=== PATIENT | male | born 1970 | race Caucasian/White ===

== ENCOUNTER 2018-01-16 05:09 | Emergency (ER) | payer OTHER ==
[~2018-01-16] VITALS: Ht 193 cm; Wt 105.0 kg
[~2018-01-16 05:09] MED LIST: DULO60CA44 PO; FLUT0.15; OCTR100I IM; OXYC20TA50 PO; OXYCODONE 10 MG PO; TELO250T PO; WLLXL300 PO
[2018-01-16 05:16] VITALS: TEMP 37.5; Ht 193 cm; Wt 105.0 kg
[2018-01-16] MEDS ORDERED: KETOROLAC TROMETHAMINE 30 MG/ML VIAL IV STA (05:42)
--- NOTE | 2018-01-16 06:00 | EMERGENCY ROOM VISIT NOTE ---
History Report prepared by Jim: Lam Evans Under the Supervision of: Dr. Jerrica Aleman D.O. First contact with patient: 05:26 Chief Complaint: FOOT PAIN Stated Complaint: PAINFUL LEFT FOOT, SWOLLEN History of Present Illness The patient is a 48 year old male who presents to the Emergency Room with complaints of worsening left foot pain, swelling, and redness that began 5 days ago. Patient states the pain is worsened with movement of his toes. He describes the pain as "excruciating" and states he gets intermittent "shooting pains" up the back of his left leg. Patient states he has had a "nodule" on the arch of his left foot for about a year which his PCP recommended to just closely monitor. Past medical history includes metastatic carcinoid cancer. Patient states his oncologist told him to get a x-ray and US of his left foot to check for a blood clot. Patient states the results showed no clot and that it is "not in the bone". Patient is present with . states the patient finished chemotherapy 5 days ago. Patient states he is currently on an opioid regimen. He states he takes 20mg Oxycodone continuous release TID and then uses 10mg tablets as needed. He states he has not gotten any relief with the Oxycodone. Patient denies a history of gout. The patient was treated by his PCP with Keflex for what he thought was a cellulitis of the foot. That redness seems to have receded. The PCP used a skin marker to outline it. Source of History: patient Onset: 5 days ago Position: foot (left) Symptom Intensity: excruciating Quality: other (Swelling / Redness) Timing: worsening Modifying Factors (Worsening): movement Modifying Factors (Relieving): other (None) Review of Systems See HPI for pertinent positives & negatives. A total of 10 systems reviewed and were otherwise negative. Past Medical & Surgical Medical Problems: (1) Anxiety (2) Depression (3) Kidney stone (4) Liver metastasis (5) Metastatic carcinoid tumor (6) No chronic past medical history Surgical Problems: (1) H/O inguinal hernia repair (2) Hx of right hemicolectomy (3) S/P right knee arthroscopy Family History Heart disease Social History Smoking Status: Never Smoker Alcohol Use: none Marital Status: Housing Status: lives with family Occupation Status: employed Current/Historical Medications Scheduled Bupropion HCl (Bupropion HCl Xl), 300 MG PO DAILY Duloxetine Hcl (Cymbalta), 60 MG PO DAILY Octreotide Acetate (Sandostatin), 30 MCG INJ [id number] Oxycodone Hcl (Oxycontin), 20 MG PO TID Scheduled PRN Oxycodone Ir (Roxicodone Ir), 10-20 MG PO Q6H PRN for Severe Pain Allergies Coded Allergies: Epinephrine (Verified Allergy, Unknown, D/T CANCER, 07/10/17) Physical Exam Vital Signs Date Time Temp Pulse Resp B/P (MAP) Pulse Ox O2 Delivery O2 Flow Rate FiO2 01/16/18 07:11 70 18 127/70 96 Room Air 01/16/18 05:16 37.5 78 18 118/72 97 Room Air Physical Exam Heart: Regular rate and rhythm. There is a normal S1 and S2 with no murmurs, clicks, or gallops appreciated. Lungs: Clear to auscultation bilaterally with no wheezes, rales, or rhonchi. Abdomen: Soft, completely nontender, nondistended, with good bowel sounds. There are no palpable pulsatile masses or hepatosplenomegaly. There is no guarding, rigidity, or rebound noted. Extremities: No evidence of cyanosis, clubbing, or edema. There are easily palpable peripheral pulses. Left foot: Minimal erythema to the medial mid foot with palpable subcutaneous nodule at the arch. Erythema has clearly receding from the skin markings indicating resolving cellulitis. Exquisite pain with palpation over the entire 1st-4th metatarsals. There was significant edema to the foot. There is also pain to the heel of the foot and posterior ankle. Skin: warm and dry with good turgor and no rashes. Medical Decision & Procedures Laboratory Results Test 01/16/18 06:10 Uric Acid 6.0 mg/dl (2.6-7.2) Laboratory results per my review. Medications Administered Medications (Trade) Dose Ordered Sig/Josef Route Start Time Stop Time Status Last Admin Dose Admin Ketorolac Tromethamine (Toradol Inj) 30 mg NOW STAT IV 01/16/18 05:42 01/16/18 05:44 DC 01/16/18 06:17 30 MG Hydromorphone HCl (Dilaudid Inj) 1 mg NOW STAT IV 01/16/18 07:01 01/16/18 07:02 DC 01/16/18 07:09 1 MG Procedure Toradol Inj 30mg IV and Dilaudid Inj 1mg IV. ED Course 0524: Past medical records reviewed. The patient was evaluated in room A2. A complete history and physical exam was performed. An IV lock was initiated and a uric acid level was drawn. 0542: Toradol Inj 30mg IV 0700: I reevaluated the patient. He states he had some relief with the Toradol. Patient states he was expecting to have an MRI of his foot today. I encouraged him to follow up with his PCP to have the MRI as an outpatient. Patient will be administered a dose of Dilaudid. 0701: Dilaudid Inj 1mg IV. 0704: Upon reevaluation, the patient is resting comfortably. He states he would like crutches to use. I discussed findings and results with him. He verbalized agreement of the treatment plan. He was discharged home. Medical Decision The patient is a 48 year old male who presents to the ED with worsening left foot pain, swelling, and redness. Differential diagnosis includes cellulitis, gout, plantar fibroma, and carcinoid tumor of the foot. Lab results show uric acid = 6. This is a 48-year-old male patient with history of metastatic carcinoid who presents to the emergency department with severe pain of the entire left foot. The patient is currently being treated with Keflex for a cellulitis of the foot. This seems to be improving but now the patient has severe pain throughout the entire foot. I am concerned that this lump in the arch of the foot may be metastatic carcinoid. I believe the next appropriate step would be to obtain an MRI of that foot. In the meantime, the patient was encouraged to use his prescribed oxycodone for the pain along with some NSAIDs. He should follow-up closely with his PCP this weekend to get the MRI arranged. Medication Reconcilliation Current Medication List: was personally reviewed by me Blood Pressure Screening Patient's blood pressure: Normal blood pressure Blood pressure disposition: Did not require urgent referral Impression Primary Impression: Left foot pain Additional Impression: Cellulitis of left foot Scribe Attestation The scribe's documentation has been prepared under my direction and personally reviewed by me in its entirety. I confirm that the note above accurately reflects all work, treatment, procedures, and medical decision making performed by me. Departure Information Dispostion Home / Self-Care Referrals Robin Doe D.O. (PCP) Forms HOME CARE DOCUMENTATION FORM, IMPORTANT VISIT INFORMATION Patient Instructions My [facility] Additional Instructions Use the crutches to avoid bearing weight on the left foot. Rest with it elevated. Finish course of antibiotics Take pain meds as directed. Take burst of prednisone over next 5 days Follow up with PCP fror MRI of the left foot. Return to the ER for fevers/chills or worsening symptoms Problem Qualifiers
[2018-01-16] MEDS ORDERED: HYDROmorphone INJ 1 MG/ML SYR IV STA (07:01)
[2018-01-16] MEDS ORDERED: OXYC-90 PO (07:09)
[2018-01-16] MEDS ORDERED: OXYC20TA50 PO (07:10)
[2018-01-16 07:11] VITALS: BP 127/70; PULSE 70; O2SAT 96
[2018-01-16] MEDS ORDERED: OCTR50IN INJ (07:14)
== END 2018-01-16 07:25 | disposition home or self-care (01) ==
LOC: C.EDB 05:10 → C.EDA 07:25
DX: M79.672 Pain in left foot (principal); L03.116 Cellulitis of left lower limb; F32.9 Major depressive disorder, single episode, unspecified; Z79.899 Other long term (current) drug therapy; Z88.8 Allergy status to other drugs, medicaments and biological substances; Z85.9 Personal history of malignant neoplasm, unspecified

== ENCOUNTER 2019-12-29 15:59 | Inpatient (IN) ==
--- OUTSIDE RECORDS SUMMARY | 2019-12-29 16:01 | External Medical Summary | Continuity of Care Document ---
:1970 Author Name Lanie Gilliam, Provider Address Unavailable Unavailable , Care Team Providers Name Role Phone Gonsalo Villafuerte DO Unavailable [email or web address] Pierre Unavailable Unavailable Unavailable Unavailable Unavailable Problems Obstructive sleep apnea (327.23) (G47.33) Allergies and Adverse Reactions No Known Drug Allergies (Allergy) Medications FLUoxetine HCl - 40 MG Oral Capsule Refills: 0 Procedures Procedures not documented Immunizations Immunizations not documented Social History - Smoking Status Never smoked tobacco Plan of Treatment Planned Observations Planned Goals not documented Results No Known Results Results not documented Encounters Appointment; Gonsalo Villafuerte DO 13-Oct-2013 10:00 Encounter Diagnosis: Problem not documented
--- NOTE | 2019-12-29 17:57 | Emergency Department Note ---
Impression & Plan Depression with suicidal ideation, Mood disorder ED Provider Note Provider: Stephen Winchester MD DATE OF SERVICE: 12/29/2019 CHIEF COMPLAINT: Depression, mood disorder, suicidal HISTORY OF PRESENT ILLNESS: Patient is a 49-year-old gent with a history of ADHD and carcinoid tumor presenting today complaining of worsening mental health status over the last several weeks. Patient is a patient of son salvatore and has been undergoing recent treatment therefore ADHD which is a newer diagnosis. Has weaned himself off of Suboxone in the last 2 weeks. Continues to have issues related to work and his . Issues with sleep at times. Has been having some longstanding issues and follows with oncology regarding carcinoid issues and some carcinoid events. Patient states does not feel appreciated at work and he believes that his family does understand his history of Suboxone use is an ADHD. Patient presents here today as he was having suicidal ideations and reported a plan of wanting to harm himself today. Patient did not disclose this plan on my initial evaluation. REVIEW OF SYSTEMS: A total of 10 review of systems was obtained and negative except as stated above in the HPI. PAST MEDICAL HISTORY: As noted above MEDICATIONS: Reviewed home medication listing, not currently on Suboxone SOCIAL HISTORY: and lives at home with , employed PHYSICAL EXAM: GENERAL: alert and oriented sitting on the bed listening to be is up on his phone Head: normocephalic and atraumatic EYES: No injection, discharge or icterus. ENT: Mucous membranes pink and moist. LUNGS: Airway patent. No retractions. Breath sounds clear HEART: Regular rate and rhythm. No chest wall tenderness SKIN: Acyanotic, warm, dry, without rashes EXTREMITIES: Without swelling, tenderness or deformity NEUROLOGICAL: No focal deficits. No aphasia. No facial droop or slurred speech. Normal strength and tone in the extremities. Sensation to gross touch normal. Ambulatory. Psych: Slightly animated affect endorsing SI with plan but did not initially disclose the plan. EK bpm normal sinus rhythm. No PVCs or PACs. No acute ST segment elevation. QTc 430. Patient's hypertension was referred to PCP HOSPITAL COURSE: 1621 Patient was first seen and H&P performed. 2001 patient accepted tentatively to 3 S. on a 201 voluntary psychiatric admission. Patient's laboratory studies and imaging reviewed. Differential includes Mood disorder, infection, hypoglycemia, electrolyte abnormalities, cardiac sources, intracerebral event, toxicologic, trauma, neurologic, as well as other pathologies. IMPRESSION/MEDICAL DECISION MAKING: Patient presents here seeking mental health evaluation due to worsening mood issues and today thoughts of suicide with plan. Medical clearance was completed. Seen conjunction with psychiatric case coordinator. Mildly hypertensive. Labs without significant abnormality noted. UDS noted for positive MDMA and methamphetamine screen question his home duloxetine/bupropion and Adderall false positive. Patient was agreeable to voluntary inpatient treatment. Referral was made for this and bed search started. Believe this is reasonable. Patient accepted 3 S. further inpatient psychiatric care. DIAGNOSIS: Depression with suicidal ideation, mood disorder DISPOSITION: Inpatient psychiatric bed placement in [address] [place] [address] on 201. Past Med/Surg History Social History Smoking Status: Unknown if ever smoked Feels Safe at Home: Yes Allergies Allergies Allergy/AdvReac Type Severity Reaction Status Date / Time epinephrine Allergy Unknown D/T CANCER Verified 07/10/17 10:53 Home Meds Home Medications Medication Instructions Recorded Confirmed bupropion HCl 300 mg PO DAILY 12/29/19 12/29/19 dextroamphetamine-amphetamine 60 mg PO DAILY 12/29/19 12/29/19 duloxetine 60 mg PO DAILY 12/29/19 12/29/19 octreotide acetate 500 mcg SUBCUT 12/29/19 Results & Data (ED) Vital Signs Vital Signs - 24 hr 12/29/19 16:05 Temperature 37.4 C Temperature Source Oral Pulse Rate 99 H Pulse Rhythm Regular Pulse Strength Normal Respiratory Rate 20 Respiratory Effort / Characteristics Non-Labored Respiratory Depth Normal Respiratory Pattern Regular Blood Pressure 147/95 H Blood Pressure Mean 112 Blood Pressure Position Sitting Pulse Oximetry 97 Oxygen Delivery Method Room Air Sepsis Recent Fever Within 48 Hours No Sepsis New/Unexplained Change in Mental Status No Sepsis Action Taken by Nursing No Action Required Laboratory Data Result diagrams: 12/29/19 17:58 12/29/19 17:58 Lab Results 12/29/19 12/29/19 12/29/19 Range/Units 17:55 17:55 17:58 WBC 5.99 (4.8-10.8) K/uL RBC 4.38 L (4.7-6.1) M/uL Hgb 14.7 (14.0-18.0) g/dL Hct 42.3 (42-52) % MCV 96.6 (80-100) fL MCH 33.6 (25-34) pg MCHC 34.8 (32-36) g/dL RDW Std Deviation 50.4 H (36.4-46.3) fL RDW Coeff of Tio 14.3 (11.5-14.5) % Plt Count 146 (130-400) K/uL MPV 10.6 H (7.4-10.4) fL Immature Gran % (Auto) 0.2 % Neut % (Auto) 64.5 % Lymph % (Auto) 25.0 % [place] % (Auto) 8.8 % Eos % (Auto) 0.8 % Baso % (Auto) 0.7 % Neut # (Auto) 3.86 (1.4-6.5) K/uL Lymph # (Auto) 1.50 (1.2-3.4) K/uL [place] # (Auto) 0.53 (0.11-0.59) K/uL Eos # (Auto) 0.05 (0-0.5) K/uL Baso # (Auto) 0.04 (0-0.2) K/uL Immature Gran # (Auto) 0.01 (0.00-0.02) K/uL Sodium (136-145) mmol/L Potassium (3.5-5.1) mmol/L Chloride (98-107) mmol/L Carbon Dioxide (21-32) mmol/L Anion Gap (3-11) BUN (7-18) mg/dl Creatinine (0.6-1.4) mg/dl Est Cr Clr Drug Dosing ml/min Est GFR ( Amer) Est GFR (Non-Af Amer) BUN/Creatinine Ratio (10-20) Glucose (70-99) mg/dl Calcium (8.5-10.1) mg/dl Total Bilirubin (0.2-1) mg/dl AST (15-37) U/L ALT (12-78) U/L Alkaline Phosphatase (45-117) U/L Total Protein (6.4-8.2) gm/dl Albumin (3.4-5.0) gm/dl Globulin (2.5-4.0) gm/dl Albumin/Globulin Ratio (0.9-2) TSH (0.300-4.500) uIu/ml Specimen Hemolysis Urine Color Dark Yellow Urine Appearance Cloudy A (Clear) Urine pH 5.0 (4.5-7.5) Ur Specific [place] 1.024 (1.000-1.030) Urine Protein Negative (Negative) Urine Glucose (UA) Negative (Negative) Urine Ketones Trace H (Negative) Urine Blood Negative (Negative) Urine Nitrite Negative (Negative) Urine Bilirubin Negative (Negative) Urine Urobilinogen Negative (Negative) Ur Leukocyte Esterase Negative (Negative) Urine WBC (Auto) 1-5 (0-5) /hpf Urine RBC (Auto) 0-4 (0-4) /hpf U Hyaline Cast (Auto) 1-5 (0-5) /lpf U Epithel Cells (Auto) 0-5 (0-5) /lpf Urine Bacteria (Auto) Negative (Negative) Urine Crystals Not Reportable Calcium Oxalate Crystal Present A (None Prsent) Salicylates (2.8-20) mg/dl Urine Opiates Screen Neg (Neg) Ur Methadone, Qual Neg (Neg) Acetaminophen (10-30) ug/ml Urine Barbiturates Neg (Neg) Ur Phencyclidine (PCP) Neg (Neg) U Amphetamin/Meth Scrn Pos H (Neg) MDMA (Ecstasy) Screen Pos H (Neg) U Benzodiazepines Scrn Neg (Neg) Ur Cocaine Metabolite Neg (Neg) U Marijuana (THC) Screen Neg (Neg) Ethyl Alcohol mg/dL (0-3) mg/dl 12/29/19 12/29/19 12/29/19 Range/Units 17:58 17:58 17:58 WBC (4.8-10.8) K/uL RBC (4.7-6.1) M/uL Hgb (14.0-18.0) g/dL Hct (42-52) % MCV (80-100) fL MCH (25-34) pg MCHC (32-36) g/dL RDW Std Deviation (36.4-46.3) fL RDW Coeff of Tio (11.5-14.5) % Plt Count (130-400) K/uL MPV (7.4-10.4) fL Immature Gran % (Auto) % Neut % (Auto) % Lymph % (Auto) % [place] % (Auto) % Eos % (Auto) % Baso % (Auto) % Neut # (Auto) (1.4-6.5) K/uL Lymph # (Auto) (1.2-3.4) K/uL [place] # (Auto) (0.11-0.59) K/uL Eos # (Auto) (0-0.5) K/uL Baso # (Auto) (0-0.2) K/uL Immature Gran # (Auto) (0.00-0.02) K/uL Sodium 141 (136-145) mmol/L Potassium 4.4 (3.5-5.1) mmol/L Chloride 108 H (98-107) mmol/L Carbon Dioxide 28 (21-32) mmol/L Anion Gap 5.0 (3-11) BUN 21 H (7-18) mg/dl Creatinine 1.24 (0.6-1.4) mg/dl Est Cr Clr Drug Dosing 79.1 ml/min Est GFR ( Amer) 78.6 Est GFR (Non-Af Amer) 67.8 BUN/Creatinine Ratio 16.9 (10-20) Glucose 86 (70-99) mg/dl Calcium 8.9 (8.5-10.1) mg/dl Total Bilirubin 0.5 (0.2-1) mg/dl AST 18 (15-37) U/L ALT 25 (12-78) U/L Alkaline Phosphatase 119 H (45-117) U/L Total Protein 8.0 (6.4-8.2) gm/dl Albumin 4.0 (3.4-5.0) gm/dl Globulin 4.0 (2.5-4.0) gm/dl Albumin/Globulin Ratio 1.0 (0.9-2) TSH 3.050 (0.300-4.500) uIu/ml Specimen Hemolysis Urine Color Urine Appearance (Clear) Urine pH (4.5-7.5) Ur Specific [place] (1.000-1.030) Urine Protein (Negative) Urine Glucose (UA) (Negative) Urine Ketones (Negative) Urine Blood (Negative) Urine Nitrite (Negative) Urine Bilirubin (Negative) Urine Urobilinogen (Negative) Ur Leukocyte Esterase (Negative) Urine WBC (Auto) (0-5) /hpf Urine RBC (Auto) (0-4) /hpf U Hyaline Cast (Auto) (0-5) /lpf U Epithel Cells (Auto) (0-5) /lpf Urine Bacteria (Auto) (Negative) Urine Crystals Calcium Oxalate Crystal (None Prsent) Salicylates < 1.7 L (2.8-20) mg/dl Urine Opiates Screen (Neg) Ur Methadone, Qual (Neg) Acetaminophen < 2 L (10-30) ug/ml Urine Barbiturates (Neg) Ur Phencyclidine (PCP) (Neg) U Amphetamin/Meth Scrn (Neg) MDMA (Ecstasy) Screen (Neg) U Benzodiazepines Scrn (Neg) Ur Cocaine Metabolite (Neg) U Marijuana (THC) Screen (Neg) Ethyl Alcohol mg/dL < 3.0 (0-3) mg/dl Discharge Plan Visit Data Chief Complaint: Mental Health Evaluation Stated Complaint: MENTAL HEALTH EVAL ED Provider: Stephen Winchester Discharge Problem: Depression with suicidal ideation, Mood disorder Patient Disposition: Transfer Behavioral Health Fac Condition: Good Forms Stand Alone Forms: My [facility], Suicide Prevention Resources Prescriptions Prescriptions: No Action dextroamphetamine-amphetamine 20 mg tablet 60 mg PO DAILY RF: 0 duloxetine 60 mg capsule,delayed release(DR/EC) 60 mg PO DAILY RF: 0 bupropion HCl 300 mg tablet extended release 24 hr 300 mg PO DAILY RF: 0 octreotide acetate 500 mcg/mL (1 mL) Syringe 500 mcg subcut RF: 0 Referrals Referrals: Robin Doe DO [Primary Care Provider] -
[2019-12-29 18:13] LABS: Appearance Urine Cloudy (Clear); Bacteria Urine Automated Negative (Negative); Bilirubin Urine Negative (Negative); Blood Urine Negative (Negative); Color Urine Dark Yellow; Epithelial Cell Urine Auto 0-5 /lpf (0-5); Glucose Urine UA Negative (Negative); Ketones Urine Trace (Negative); Leukocyte Esterase Urine Negative (Negative); Nitrite Urine Negative (Negative); Protein Urine Negative (Negative); RBC Urine Automated 0-4 /hpf (0-4); Specific Gravity Urine 1.024 (1.000-1.030); Urobilinogen Urine Negative (Negative)
[2019-12-29 18:23] LABS: Basophils # (auto) 0.04 K/uL (0-0.2); Basophils % (auto) 0.7 %; Eosinophils # (auto) 0.05 K/uL (0-0.5); Eosinophils % (auto) 0.8 %; Hematocrit (blood only) 42.3 % (42-52); Hemoglobin 14.7 g/dL (14.0-18.0); Immature Granulocytes # (auto) 0.01 K/uL (0.00-0.02); Immature Granulocytes % (auto) 0.2 %; Mean Corpuscular Hemoglobin 33.6 pg (25-34); Mean Corpuscular Hgb Conc 34.8 g/dL (32-36); Mean Corpuscular Volume 96.6 fL (80-100); Mean Platelet Volume 10.6 fL (7.4-10.4); Monocytes # (auto) 0.53 K/uL (0.11-0.59); Monocytes % (auto) 8.8 %; Neutrophils # (auto) 3.86 K/uL (1.4-6.5); Neutrophils % (auto) 64.5 %; Platelet Count 146 K/uL (130-400); RDW Coefficient of Variation 14.3 % (11.5-14.5); RDW Standard Deviation 50.4 fL (36.4-46.3); Red Blood Count 4.38 M/uL (4.7-6.1); White Blood Count 5.99 K/uL (4.8-10.8)
[2019-12-29 18:26] LABS: Amphetamines+Metham, Urine Pos (Neg); Barbiturates, Urine Neg (Neg); Benzodiazepine, Urine Neg (Neg); Cocaine, Urine Neg (Neg); MDMA (Ecstacy), Urine Pos (Neg); Methadone, Urine Neg (Neg); Opiate, Urine Neg (Neg); Phencyclidine, Urine Neg (Neg)
[2019-12-29 18:41] LABS: Calcium Oxalate Crystals Urine Present (None Prsent)
[2019-12-29 18:43] LABS: BUN Creatinine Ratio 16.9 (10-20); Calcium 8.9 mg/dl (8.5-10.1); Creatinine Clr Calc Pharmacy 79.1 ml/min; Est GFR (African American) 78.6; Est GFR (Non-African American) 67.8; Potassium 4.4 mmol/L (3.5-5.1)
[2019-12-29 18:51] LABS: Bilirubin,Total 0.5 mg/dl (0.2-1); Thyroid Stimulating Hormone 3.05 uIu/ml (0.300-4.500)
[2019-12-29 18:54] LABS: Acetaminophen < 2 ug/ml (10-30); Salicylate < 1.7 mg/dl (2.8-20)
[2019-12-29 20:19] VITALS: O2SAT 99
[2019-12-29] MEDS ORDERED: MAGNESIUM HYDROXIDE SUSP 30 ML UDC PO PRN (20:35)
[2019-12-29] MEDS ORDERED: SODIUM CHLORIDE 0.65% NA SOLN 45 ML (OCEAN) PRN (20:35)
[2019-12-29] MEDS ORDERED: ALUMINUM/MAGNESIUM SUSP 30 ML UDC PO PRN (20:35)
[2019-12-29] MEDS ORDERED: BISMUTH SUBSALICYLATE PER ML OMNICELL CHARGE PO PRN (20:36)
[2019-12-30] MEDS: BuPROPion XL 300 MG TABCR PO SCH (09:09)
[2019-12-30] MEDS: DULOXETINE HCL 60 MG CAP PO SCH (09:09)
--- NOTE | 2019-12-30 15:47 | History & Physical ---
Date of Service December 30, 2019 Impression / Recommendations Impression This 49-year-old man had recently reported, on an outpatient basis, that he was doing well and felt that his life was progressing in the direction that he had hoped that it would. 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 Specifically, in this case, he reportedly "stormed" out of the house (per message received from his yesterday), and reportedly had sent a message to his personnel office that suggested that he was actively suicidal and planning to kill himself in the here and now. Patient's had been advised to contact the police to see if they could find him. According to the patient, she did not and, instead, he eventually contacted her and agreed to proceed to the emergency department for an evaluation. This is a complicated case. The patient does have significant mood alterations, mostly depressive in nature. However, the bigger problem for the patient seems to be difficulty regulating his mood in the face of stressors, particularly feedback that he considers to be an affront to his sense of self. The incident that precipitated the current admission essentially constituted a narcissistic injury when his brush fabrication supervisor condescended to him by telling him how to request time off (when he should have known that the patient knew how to do that) and, in the patient's view, implied that he, the patient, was not taking responsibility for his own decisions, such as to take time off from work. He gives lip service to understanding that his behaviors are substantially contributing to the set of difficulties that he describes, but after making what appeared to be gratuitous statement such as "I know that my behavior has a role in what happens!" He goes on to provide a string of externalized explanations for his circumstances. 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 However, the patient's assertion that the problematic behaviors that have come to light are somehow new or have only existed since his cancer diagnosis is not true based on the history that the patient has provided in other settings. He does seem to meet criteria for attention deficit hyperactivity disorder, and he had repeatedly reported favorable response to the use of stimulant medications. However, as his outpatient provider I was becoming progressively more skeptical because, for example, he told me at an encounter several months ago that he had been suspended from work for time and attendance issues, and he attributed his absenteeism to being overwhelmed and having difficulty concentrating, focusing, and completing tasks. There is also been a question raised regarding whether the patient is sometimes taking more Adderall than is being prescribed, and while he denies this, he repeatedly states that he feels he needs "more" because he is "so tired" all the time. (Also says that he is "so tired" because he is staying up late doing his work and trying to please his boss.) In this case, given the patient's explosive behaviors and the question of whether he is not properly using his Adderall I am discontinuing it and do not plan to re- prescribe it. We will continue his antidepressant medications, namely duloxetine 60 mg a day and bupropion extended release 300 mg a day, but we believe that it would be in his best interest to add a mood stabilizer. Also, the 2 antidepressant medications may be activating and it may be necessary to taper or discontinue bupropion. (1) Threatening suicide: 12/30/19 -The patient has been admitted to the [facility] behavioral health unit and has been placed on close observation with suicide precautions. He is wood for safety on the unit. -The patient has been confronted about the fact that his threats of suicide were made indirectly and by inference, at least within the context of his contact with his employers personnel office. The patient asserts that while his threats may have been indirect or inferred, he is, in fact, actively suicidal and remained so as of today. When asked, he declines to disclose his intended method and just said "there are lots of ways." Present on Admission?: Yes (2) Major depression: 12/30/19 -Patient has a known history of recurrent major depressive episodes. These episodes do seem to occur independent of situational precipitants. However, the clinical picture is complicated by the fact that the patient, at baseline, has a great deal of difficulty regulating his mood and his behavior. For example, there is an extensive history of similar angry, dramatic, poorly controlled episodes, often involving his . -He has reported that his mood has improved response to the antidepressant medication duloxetine 60 mg a day, with bupropion XL 300 mg daily as an adjunct. However, he continues to have difficulty regulating his mood and tells us that even before the "run in" with his boss his mood was becoming progressively more depressed in the past several weeks. (An additional complicating factor is that during this period the patient had decided to stop taking Suboxone and was experiencing opioid withdrawal.) -I recommend that the patient start a mood stabilizer, namely lamotrigine, given his clear difficulty regulating his mood when under stress. Material risks of lamotrigine, including but not limited to Goldman-Chun syndrome were reviewed with the patient. He agreed that he would monitor for signs of a rash and would ask his or nursing staff to help him check. He was advised to notify us immediately if he develops a rash, particularly a rash that begins to spread. Present on Admission?: Yes (3) ADHD: 12/30/19 -The patient comes to us with a diagnosis of ADHD and does describe a longstanding history of difficulty concentrating, focusing, staying on task, avoiding unnecessary distractions, listening when being directly addressed, and forgetfulness. He had consistently reported favorable response to Adderall on an outpatient basis but, of note is the fact that he had been regularly asking for increases in his dose of Adderall after initially asserting satisfaction w ith his response that each dose level. Staff note that they have been advised that there is a suspicion that the patient is using more Adderall than has been prescribed, but the patient denies that this is true, and he has not requested refills of Adderall prematurely. Nevertheless, given his intermittent explosive behaviors, his difficulty regulating his mood, and his extensive mood irritability we have elected not to continue Adderall in the hospital, and the plan will be for him not to continue Adderall or other stimulant on an outpatient basis. (4) Personality disorder: 12/30/19 -The patient uses a number of fairly primitive defense mechanisms including denial, projection and labral externalization. Also, his periods of emotional dysregulation seem most likely to occur in situations in which he has received a narcissistic injury, or is sensing that people are not living up to his expectations, or that he is not being given appropriate credit for his hard work. The patient is being actively encouraged to look at the extent to which he attributes his disagreeable life circumstances to, essentially, what he perceives as the hostility or incompetence of other people. He has been advised that while certainly other people can be hostile and incompetent, he is unlikely to change their behavior, and the only behavior that he can actually changes his own. For example, I attempted to role-play with the patient a response that he could have given his brush fabrication supervisor when his brush fabrication supervisor sent the patient with the patient considered to be a condescending and insulting emailparticularly given the fact that the bosses inference was unfounded and the specific instance. The patient's instinct was to either ignore the bosses insult or send the boss they noticed that he, the patient, does not intend to tolerate condescension and hostility. I suggested that a different response might be to thank the brush fabrication supervisor for his response and explained that he, the patient, had checked with specific persons in the department to make sure that his absence would not affect productivity on the specific projects in question and, in fact, he would have been happy to defer the requested time off had the feedback been otherwise. The patient is encouraged to work on these issues in individual Present on Admission?: Yes Inventory Assets Strengths: Intelligent. Employed. Needs: Greater sense of personal responsibility. Improved mood regulation. Resolution of active suicidal thoughts. Risk Factors Assessment Male. Psychiatric diagnoses. Depression. Recurrent suicidal thoughts. Neuroendocrine tumors with poor long-term prognosis. Male: Yes : Yes Do You Have Access To A Gun?: No Health Problems: Yes Mental Health Diagnoses: Yes Substance Use Disorders: Yes Previous Attempt: No Family History of Suicide: No Previous Psychiatric Hospitalization: No Hopelessness: Yes Smoker: Yes Protective Factors Assessment Spiritism Beliefs: No : Yes Responsible for Young Children: No Employed: Yes Stable Relationships: Yes Supportive Family: Yes Good Rapport with Provider: Yes Absence of Any Risk Factors Above: No Psychiatric History Identifying Data YADI FREEMAN is a 49-year-old M who currently lives locally with his . He has a history of major depression, anxiety, ADHD, and a neuroendocrine carcinoma x4- 5 years. He was admitted on 12/29/19 19:38 on a 201 voluntary commitment for depression and suicidality Chief Complaint " Depressed" History of Present Illness The patient is a 49-year-old man known to me through recent contacts as his outpatient psychiatrist subsequent to his transfer from a different psychiatric provider. This is a complex case that includes a history of prescription opioid dependence, Suboxone treatment, recurrent episodes of major depression, severe difficulty regulating his mood, generalized anxiety, certain cluster B personality features, marital difficulties, work performance issues, and a history of an active diffuse neuroendocrine carcinoma. Patient reports that for the past week and a half or so he has been experiencing increasing depression accompanied with thoughts of suicide. As above, there have been ongoing difficulties with his work performance and he had fairly recently been suspended for time and attendance issues. Now back at work, he experiences his brush fabrication supervisor as being hostile, demeaning and condescending. Also, his reportedly has been encouraging him to stop Suboxone, and he indicates that he experienced withdrawal symptoms into the present week after he abruptly discontinued Suboxone "to get my off my back." He reports that the incident that precipitated the current admission was the fact that he felt that his "work life balance" was "unbalanced," and so he decided that he wanted to take 1 or possibly 2 days off from work. Within this context, he checked the status of several projects on which she was collaborating with his coworkers and was told that the projects, request for proposals, or in good shape and that it would not affect the proposals if he took 1 or 2 days off at this point. The patient tells us that he then emailed his brush fabrication supervisor and said that he wanted to take 1 and possibly 2 days off. By the patient's own admission, he did not inform the boss that he had already checked his make sure that his taking time off would not interfere with either of the above referenced projects in which she was working. The bus wrote back, told him to request the time off through the electronic automated system, and, seemingly gratuitously to the patient, said something such as, "it is not my job to make sure that it is okay for you to take time off from work." The patient did not respond, but felt diminished and extremely irritated. He tells me that he was already irritated because his had not been particularly supportive while he was going through withdrawal from Suboxone, even though he asked her to "give [him] a little bit of encouragement every now and then" during withdrawal. Within this context, he says that he received a text message from a senior compliance officer at his job asking for clarification regarding his request for leave time. The patient acknowledged that his response was to indicate that he was "done" and might not be alive the next day. The patient acknowledges that he knew that he was making a reference to suicide and that the statement would be interpreted that way, particularly because the senior compliance officer is reportedly a friend of the patient and is aware of his ongoing depression. The patient then said that he made the statement intentionally in order to communicate his level of distressbut, also, he reiterates that he truly was planning to commit suicide at that point. During the encounter, the patient was confronted a number of times about the fact that in each instance he portrays himself as the victim or at least recipient of the incompetence, and difference, and unexplained hostility of other people. These included people at work, his , the emergency room staff who reportedly did not inform him about his lab results, and his outpatient psychiatric providers, including me, for not giving him the treatment that he "obviously" needs which he believes is cognitive behavioral therapy. Later, the patient shifted to blaming his behaviors on his neuroendocrine tumors and said (in a manner inconsistent with his history) and that none of the behaviors that we are witnessing currently were present before he was diagnosed with cancer. At several points the patient reiterated that he is currently suicidal, but would not disclose his planned method. At the same time, the patient has put in a 72- hour notice of intent to terminate inpatient treatment at the hospital, and he was advised that given that he has repeatedly threatened suicide and is, in fact, today threatening suicide I would strongly recommend that he retract his voluntary notice and continue in treatment. I also told him that I would strongly suggest that he spend the time in treatment understanding what is about his behavior that seems to alienate other people, turn allies and adversaries, and engage in self-destructive behaviors. This and raised the patient and he say things such as "I take full responsibility for my behavior. But, I do not have to be treated the way Manny (his boss) talks to me." He also made statements such as "I have no energy. I work all the time. I work, work, work, work, work, work, come home and go to bed, get up in the morning, go to work, work, work, work, work, repeat." When asked what steps he has taken to ameliorate the situation and, specifically, if he is considering applying for a different job he said "you mean 1 with the same pay with the same paresthesias the same status?" When I push the point he said, yes, I have decided to apply for disability." When I ask him what this is about him that has rendered him disabled he became angry again and said "I have read that most people who have the kind of cancer I have are disabled." When I pushed and said that I was not asking what most people do I was asking him to explain that if his problems at work are not related to his own behaviors but, instead, to the behaviors of certain coworkers or supervisory staff, what would be the basis for him saying that he, himself, is disabledrather than the other persons who he is describing is hostile and incompetent. The patient responded, "oh my God. No one cares." It took a series of confrontation, but the patient did turn around and expressing interest to examine his own behaviors and take some responsibility for those portions of his behaviors that he feels that he can reasonably be expected to manage. We also discussed alternative treatments, such as mood stabilizers given his expressed and admitted difficulty regulating his mood and his behaviors when under stress. Although I do feel that the patient meets criteria for ADHD, I am not recommending that we continue stimulant medication given the impulsive, somewhat explosive behavior of the patient there have also been reports that the patient may be misusing Adderall. Past Psychiatric History Previous Psych History: As noted above, the patient has been followed at [facility], and outpatient psychiatric provider in [place]. He was followed by a ROBERT Chavez, and, in approximately the past 6 months began treatment with the undersigned, Dr. Concepcion. He had reported a favorable response to stimulant medication, namely Adderall, and an outpatient basis but requested dose increases, followed by assurances that he had hit the "sweet spot" in terms of managing his ADHD symptoms. The patient says that this is his first psychiatric hospitalization. Current Psychiatric Diagnosis: Depression, ADHD Outpatient Services: Currently followed on an outpatient basis at [facility]. Previous Psych Admissions: None. Do You Have Access To A Gun?: No History of Previous Suicide Attempt: No Describe Attempts in the Past: denies Past Head Trauma/Neuro History History of Concussion/Seizure: No Allergies Allergy/AdvReac Type Severity Reaction Status Date / Time epinephrine Allergy Unknown D/T CANCER Verified 07/10/17 10:53 Home Medications Home Medications Medication Instructions Recorded Confirmed Type bupropion HCl 300 mg PO DAILY 12/29/19 12/29/19 History dextroamphetamine-amphetamine 20 mg PO TID 12/29/19 12/29/19 History duloxetine 60 mg PO DAILY 12/29/19 12/29/19 History octreotide acetate 500 mcg SUBCUT 12/29/19 History Family History Family Mental Health History Comment: Father had a problem with drinking at times, son with ADHD, Alcohol History Hx of Alcohol Use Over the Past 12 Months: No AUDIT Total Score: 0 Smoking Use Have You Smoked or Used Tobacco Products in the Last 30 Days: Yes tobacco type: smokeless tobacco Smoking Status: Current some day smoker Substance History Hx of Prescription Med Misuse Over the Past 12 Months: No Hx of Over the Counter Med Misuse Over the Past 12 Months: No Hx of Inhalent Misuse Over the Past 12 Months: No Hx of Organic Substance Use Over the Past 12 Months: No Hx of Illegal Substances/Street Drug Use Over Past 12 Months: No Problems as a Result of Past Substance Use: None Identified Personal History Living Arrangements: Home Living Arrangements Comments: living with and 18 yr old son, Highest Grade Completed: College Highest Grade Completed Comment: [employer], completed course work for Masters but didn't do thesis. Marital Status: Number Of Children: 2 Beliefs That Will Affect Care: None Hx Legal Problems: No Hx Traumatic Life Events: Yes (Patient has been diagnosed with neuroendocrine carcinomas and is aware that his long-term prognosis is poor.) Patient History Social History Smoking Status: Current some day smoker Preferred Language: Iranian Communication Ability: Effective Data Collection Associate Required: No Beliefs That Will Affect Care: None Feels Safe at Home: Hesitant to Answer Review of Systems Review of Systems: All systems reviewed & are unremarkable except as noted in HPI & below The review of at least 10 systems was conducted. In addition, the physical examination, somatic history, and review of systems completed by Dr. Stephen Winchester last night in the emergency department has been reviewed and is excepted for purposes of medical clearance to the behavioral health unit. Physical Exam Psychiatric: Orientation: alert, oriented x 3 and cooperative Apperance: appropriately dressed and appropriately groomed Eye Contact: + poor eye contact Motor Behavior: steady gait and station (Except when angered.) Speech: normal rate/rhythm/volume of speech Periodically, the patient would say loudly, "oh my God!" In response to hearing something from the examiner that he evidently did not want to hear. Affect: + labile affect, + irritable affect and + angry affect Mood: + depressed mood, + irritable mood and + angry mood Thought Process: goal directed thought process Thought Content: reality based without delusions (The patient liberally uses defense mechanisms that include denial, projection, and externalization.) Suicidal Thoughts: + reports suicidal thoughts Patient confirms that he was suicidal when he threatened suicide yesterday and he remains suicidal today. He does not disclose the specific plan. Homicidal Thoughts: denies homicidal thoughts Hallucinations: no auditory hallucinations and no visual hallucinations Cognition: recent memory grossly intact, remote memory grossly intact and language grossly intact Estimated Intelligence: + above average estimated intelligence Insight: + poor insight Judgement: + poor judgement Vital Signs (Past 24 Hours): Last Vital Signs Temp 36.8 C 12/30/19 06:33 Pulse 64 12/30/19 06:34 Resp 18 12/30/19 06:33 BP 122/76 12/30/19 06:34 Pulse Ox 99 12/29/19 20:18 Results & Data ([facility]) Laboratory Results Laboratory Results - last 24 hr 12/29/19 12/29/19 12/29/19 17:55 17:55 17:55 WBC RBC Hgb Hct MCV MCH MCHC RDW Std Deviation RDW Coeff of Tio Plt Count MPV Immature Gran % (Auto) Neut % (Auto) Lymph % (Auto) [place] % (Auto) Eos % (Auto) Baso % (Auto) Neut # (Auto) Lymph # (Auto) [place] # (Auto) Eos # (Auto) Baso # (Auto) Immature Gran # (Auto) Sodium Potassium Chloride Carbon Dioxide Anion Gap BUN Creatinine Est Cr Clr Drug Dosing Est GFR ( Amer) Est GFR (Non-Af Amer) BUN/Creatinine Ratio Glucose Calcium Total Bilirubin AST ALT Alkaline Phosphatase Total Protein Albumin Globulin Albumin/Globulin Ratio TSH Specimen Hemolysis Urine Color Dark Yellow Urine Appearance Cloudy A Urine pH 5.0 Ur Specific [place] 1.024 Urine Protein Negative Urine Glucose (UA) Negative Urine Ketones Trace H Urine Blood Negative Urine Nitrite Negative Urine Bilirubin Negative Urine Urobilinogen Negative Ur Leukocyte Esterase Negative Urine WBC (Auto) 1-5 Urine RBC (Auto) 0-4 U Hyaline Cast (Auto) 1-5 U Epithel Cells (Auto) 0-5 Urine Bacteria (Auto) Negative Urine Crystals Not Reportable Calcium Oxalate Crystal Present A Salicylates Urine Opiates Screen Neg Ur Methadone, Qual Neg Acetaminophen Urine Barbiturates Neg Ur Phencyclidine (PCP) Neg U Amphetamines Confirm Pending U Amphetamin/Meth Scrn Pos H U Methamphetamin Confrm Pending Urine MDEA Pending MDMA (Ecstasy) Screen Pos H MDMA Pending Urine MDMA Pending U Benzodiazepines Scrn Neg Ur Cocaine Metabolite Neg U Marijuana (THC) Screen Neg Drug Screen Comment Pending Ethyl Alcohol mg/dL 12/29/19 12/29/19 12/29/19 17:58 17:58 17:58 WBC 5.99 RBC 4.38 L Hgb 14.7 Hct 42.3 MCV 96.6 MCH 33.6 MCHC 34.8 RDW Std Deviation 50.4 H RDW Coeff of Tio 14.3 Plt Count 146 MPV 10.6 H Immature Gran % (Auto) 0.2 Neut % (Auto) 64.5 Lymph % (Auto) 25.0 [place] % (Auto) 8.8 Eos % (Auto) 0.8 Baso % (Auto) 0.7 Neut # (Auto) 3.86 Lymph # (Auto) 1.50 [place] # (Auto) 0.53 Eos # (Auto) 0.05 Baso # (Auto) 0.04 Immature Gran # (Auto) 0.01 Sodium 141 Potassium 4.4 Chloride 108 H Carbon Dioxide 28 Anion Gap 5.0 BUN 21 H Creatinine 1.24 Est Cr Clr Drug Dosing 79.1 Est GFR ( Amer) 78.6 Est GFR (Non-Af Amer) 67.8 BUN/Creatinine Ratio 16.9 Glucose 86 Calcium 8.9 Total Bilirubin 0.5 AST 18 ALT 25 Alkaline Phosphatase 119 H Total Protein 8.0 Albumin 4.0 Globulin 4.0 Albumin/Globulin Ratio 1.0 TSH 3.050 Specimen Hemolysis Urine Color Urine Appearance Urine pH Ur Specific [place] Urine Protein Urine Glucose (UA) Urine Ketones Urine Blood Urine Nitrite Urine Bilirubin Urine Urobilinogen Ur Leukocyte Esterase Urine WBC (Auto) Urine RBC (Auto) U Hyaline Cast (Auto) U Epithel Cells (Auto) Urine Bacteria (Auto) Urine Crystals Calcium Oxalate Crystal Salicylates < 1.7 L Urine Opiates Screen Ur Methadone, Qual Acetaminophen < 2 L Urine Barbiturates Ur Phencyclidine (PCP) U Amphetamines Confirm U Amphetamin/Meth Scrn U Methamphetamin Confrm Urine MDEA MDMA (Ecstasy) Screen MDMA Urine MDMA U Benzodiazepines Scrn Ur Cocaine Metabolite U Marijuana (THC) Screen Drug Screen Comment Ethyl Alcohol mg/dL 12/29/19 17:58 WBC RBC Hgb Hct MCV MCH MCHC RDW Std Deviation RDW Coeff of Tio Plt Count MPV Immature Gran % (Auto) Neut % (Auto) Lymph % (Auto) [place] % (Auto) Eos % (Auto) Baso % (Auto) Neut # (Auto) Lymph # (Auto) [place] # (Auto) Eos # (Auto) Baso # (Auto) Immature Gran # (Auto) Sodium Potassium Chloride Carbon Dioxide Anion Gap BUN Creatinine Est Cr Clr Drug Dosing Est GFR ( Amer) Est GFR (Non-Af Amer) BUN/Creatinine Ratio Glucose Calcium Total Bilirubin AST ALT Alkaline Phosphatase Total Protein Albumin Globulin Albumin/Globulin Ratio TSH Specimen Hemolysis Urine Color Urine Appearance Urine pH Ur Specific [place] Urine Protein Urine Glucose (UA) Urine Ketones Urine Blood Urine Nitrite Urine Bilirubin Urine Urobilinogen Ur Leukocyte Esterase Urine WBC (Auto) Urine RBC (Auto) U Hyaline Cast (Auto) U Epithel Cells (Auto) Urine Bacteria (Auto) Urine Crystals Calcium Oxalate Crystal Salicylates Urine Opiates Screen Ur Methadone, Qual Acetaminophen Urine Barbiturates Ur Phencyclidine (PCP) U Amphetamines Confirm U Amphetamin/Meth Scrn U Methamphetamin Confrm Urine MDEA MDMA (Ecstasy) Screen MDMA Urine MDMA U Benzodiazepines Scrn Ur Cocaine Metabolite U Marijuana (THC) Screen Drug Screen Comment Ethyl Alcohol mg/dL < 3.0 Current Inpatient Medications Current Inpatient Medications: Current Inpatient Medications Acetaminophen (Tylenol) 650 mg PO Q4H PRN PRN Reason: Headache or Minor Fever Stop: 01/28/20 20:34 Al Hydrox/Mg Hydrox/Simethicone (Maalox) 30 ml PO Q4H PRN PRN Reason: GI Upset Stop: 01/28/20 20:34 Bismuth Subsalicylate (Kaopectate) 15 ml PO PRN PRN PRN Reason: Loose Stool Stop: 01/28/20 20:35 Last Admin: 12/30/19 11:25 Dose: 15 ml Documented by: Bupropion HCl (Wellbutrin-Xl) 300 mg PO DAILY SHELLY Stop: 01/29/20 08:59 Last Admin: 12/30/19 09:09 Dose: 300 mg Documented by: Duloxetine HCl (Cymbalta) 60 mg PO DAILY SHELLY Stop: 01/29/20 08:59 Last Admin: 12/30/19 09:09 Dose: 60 mg Documented by: Hydroxyzine HCl (Vistaril) 50 mg PO HSZ PRN PRN Reason: Insomnia Stop: 01/28/20 20:34 Last Admin: 12/29/19 22:36 Dose: 50 mg Documented by: Hydroxyzine HCl (Vistaril) 25 mg PO Q4H PRN PRN Reason: Anxiety Stop: 01/28/20 20:34 Lamotrigine (Lamictal) 25 mg PO QAM SHELLY Stop: 01/29/20 15:59 Magnesium Hydroxide (Milk Of Magnesia) 30 ml PO DAILY PRN PRN Reason: Constipation Stop: 01/28/20 20:34 Nicotine Polacrilex (Nicorette 2mg) 1 piece MT PRN PRN PRN Reason: Nicotine Cravings Stop: 01/29/20 08:37 Sodium Chloride ([place] Nasal) 1 - 2 sprays NA PRN PRN PRN Reason: Nasal Dryness/Congestion Stop: 01/28/20 20:34
[2019-12-30] MEDS: lamoTRIgine 25 MG TAB PO SCH (16:29)
--- NOTE | 2019-12-31 06:44 | Electrocardiogram Report ---
Test Reason : Blood Pressure : / mmHG Vent. Rate : 077 BPM Atrial Rate : 077 BPM P-R Int : 164 ms QRS Dur : 086 ms QT Int : 380 ms P-R-T Axes : 055 037 061 degrees QTc Int : 430 ms Normal sinus rhythm Possible Left atrial enlargement Borderline ECG No previous ECGs available Confirmed by Riley Victoria ([id number]) on 12/31/2019 6:44:18 AM Referred By: REFERRED SELF Confirmed By:Riley Victoria
[2019-12-31] MEDS: BuPROPion XL 300 MG TABCR PO SCH (09:03)
[2019-12-31] MEDS: DULOXETINE HCL 60 MG CAP PO SCH (09:04)
[2019-12-31] MEDS: lamoTRIgine 25 MG TAB PO SCH (09:04)
--- NOTE | 2019-12-31 11:40 | Psychiatric Progress Note ---
Date of Service December 31, 2019 Impression / Recommendations Impression This 49-year-old man had recently reported, on an outpatient basis, that he was doing well and felt that his life was progressing in the direction that he had hoped that it would. 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 Specifically, in this case, he reportedly "stormed" out of the house (per message received from his yesterday), and reportedly had sent a message to his personnel office that suggested that he was actively suicidal and planning to kill himself in the here and now. Patient's had been advised to contact the police to see if they could find him. According to the patient, she did not and, instead, he eventually contacted her and agreed to proceed to the emergency department for an evaluation. This is a complicated case. The patient does have significant mood alterations, mostly depressive in nature. However, the bigger problem for the patient seems to be difficulty regulating his mood in the face of stressors, particularly feedback that he considers to be an affront to his sense of self. The incident that precipitated the current admission essentially constituted a narcissistic injury when his painting supervisor condescended to him by telling him how to request time off (when he should have known that the patient knew how to do that) and, in the patient's view, implied that he, the patient, was not taking responsibility for his own decisions, such as to take time off from work. He gives lip service to understanding that his behaviors are substantially contributing to the set of difficulties that he describes, but after making what appeared to be gratuitous statement such as "I know that my behavior has a role in what happens!" He goes on to provide a string of externalized explanations for his circumstances. 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 However, the patient's assertion that the problematic behaviors that have come to light are somehow new or have only existed since his cancer diagnosis is not true based on the history that the patient has provided in other settings. He does seem to meet criteria for attention deficit hyperactivity disorder, and he had repeatedly reported favorable response to the use of stimulant medications. However, as his outpatient provider I was becoming progressively more skeptical because, for example, he told me at an encounter several months ago that he had been suspended from work for time and attendance issues, and he attributed his absenteeism to being overwhelmed and having difficulty concentrating, focusing, and completing tasks. There is also been a question raised regarding whether the patient is sometimes taking more Adderall than is being prescribed, and while he denies this, he repeatedly states that he feels he needs "more" because he is "so tired" all the time. (Also says that he is "so tired" because he is staying up late doing his work and trying to please his boss.) In this case, given the patient's explosive behaviors and the question of whether he is not properly using his Adderall I am discontinuing it and do not plan to re- prescribe it. We will continue his antidepressant medications, namely duloxetine 60 mg a day and bupropion extended release 300 mg a day, but we believe that it would be in his best interest to add a mood stabilizer. Also, the 2 antidepressant medications may be activating and it may be necessary to taper or discontinue bupropion. 12/30 Reviewed. Calmer today, more tearful. (1) Threatening suicide: 12/30/19 -The patient has been admitted to the [facility] behavioral [facility] unit and has been placed on close observation with suicide precautions. He is wood for safety on the unit. -The patient has been confronted about the fact that his threats of suicide were made indirectly and by inference, at least within the context of his contact with his employers personnel office. The patient asserts that while his threats may have been indirect or inferred, he is, in fact, actively suicidal and remained so as of today. When asked, he declines to disclose his intended method and just said "there are lots of ways." 12/30 reviewed (2) Major depression: 12/30/19 -Patient has a known history of recurrent major depressive episodes. These episodes do seem to occur independent of situational precipitants. However, the clinical picture is complicated by the fact that the patient, at baseline, has a great deal of difficulty regulating his mood and his behavior. For example, there is an extensive history of similar angry, dramatic, poorly controlled episodes, often involving his . -He has reported that his mood has improved response to the antidepressant medication duloxetine 60 mg a day, with bupropion XL 300 mg daily as an adjunct. However, he continues to have difficulty regulating his mood and tells us that even before the "run in" with his boss his mood was becoming progressively more depressed in the past several weeks. (An additional complicating factor is that during this period the patient had decided to stop taking Suboxone and was experiencing opioid withdrawal.) -I recommend that the patient start a mood stabilizer, namely lamotrigine, given his clear difficulty regulating his mood when under stress. Material risks of lamotrigine, including but not limited to Goldman-Chun syndrome were reviewed with the patient. He agreed that he would monitor for signs of a rash and would ask his or nursing staff to help him check. He was advised to notify us immediately if he develops a rash, particularly a rash that begins to spread. 12/30 reviewed (3) ADHD: 12/30/19 -The patient comes to us with a diagnosis of ADHD and does describe a longstanding history of difficulty concentrating, focusing, staying on task, avoiding unnecessary distractions, listening when being directly addressed, and forgetfulness. He had consistently reported favorable response to Adderall on an outpatient basis but, of note is the fact that he had been regularly asking for increases in his dose of Adderall after initially asserting satisfaction with his response that each dose level. Staff note that they have been advised that there is a suspicion that the patient is using more Adderall than has been prescribed, but the patient denies that this is true, and he has not requested refills of Adderall prematurely. Nevertheless, given his intermittent explosive behaviors, his difficulty regulating his mood, and his extensive mood irritability we have elected not to continue Adderall in the hospital, and the plan will be for him not to continue Adderall or other stimulant on an outpatient basis. 12/30 reviewed. Risks/benefits/alternatives reviewed re: ADHD med options, discussion included but was not limited to FDA warnings re: SI with Mireya (hx of past trial with PCP), risk of misuse/diversion with stimulant, and cardiovascular safety profile with alpha agonists. Patient agrees to a trial of guanfacine 0.5 mg BID starting this afternoon and then titration and transition to guanfacine ER upon discharge. (4) Personality disorder: 12/30/19 -The patient uses a number of fairly primitive defense mechanisms including denial, projection and labral externalization. Also, his periods of emotional dysregulation seem most likely to occur in situations in which he has received a narcissistic injury, or is sensing that people are not living up to his expectations, or that he is not being given appropriate credit for his hard work. The patient is being actively encouraged to look at the extent to which he attributes his disagreeable life circumstances to, essentially, what he perceives as the hostility or incompetence of other people. He has been advised that while certainly other people can be hostile and incompetent, he is unlikely to change their behavior, and the only behavior that he can actually changes his own. For example, I attempted to role-play with the patient a response that he could have given his painting supervisor when his painting supervisor sent the patient with the patient considered to be a condescending and insulting emailparticularly given the fact that the bosses inference was unfounded and the specific instance. The patient's instinct was to either ignore the bosses insult or send the boss they noticed that he, the patient, does not intend to tolerate condescension and hostility. I suggested that a different response might be to thank the painting supervisor for his response and explained that he, the patient, had checked with specific persons in the department to make sure that his absence would not affect productivity on the specific projects in question and, in fact, he would have been happy to defer the requested time off had the feedback been otherwise. The patient is encouraged to work on these issues in individual Inventory Assets Strengths: Intelligent. Employed. Needs: Greater sense of personal responsibility. Improved mood regulation. Resolution of active suicidal thoughts. Risk Factors Assessment Male: Yes : Yes Do You Have Access To A Gun?: No Health Problems: Yes Mental Health Diagnoses: Yes Substance Use Disorders: Yes Previous Attempt: No Family History of Suicide: No Previous Psychiatric Hospitalization: No Hopelessness: Yes Smoker: Yes Protective Factors Assessment Jainism Beliefs: No : Yes Responsible for Young Children: No Employed: Yes Stable Relationships: Yes Supportive Family: Yes Good Rapport with Provider: Yes Absence of Any Risk Factors Above: No Interval History Chief Complaint "She doesn't take responsbility". Review of Systems Sleep Information Total Hours of Sleep: 6 Sleep Comments: recieved a prn hs dose of vistaril for sleep aid Meal Information Percent Meal Consumed - Breakfast: 100 Percent Meal Consumed - Lunch: 100 Percent Meal Consumed - Dinner: 100 Subjective Subjective Patient was seen & assessed and interval progress reviewed with nursing and social work. Patient upset re: lack of contact from and with nature of interaction with psychiatrist. He owns that he overanalyzes situations related to work and overreacts when angry and even to taking more Adderall than he was prescribed, though nothing specific. He does feel that ADHD contributes to some of his lifelong patterns labelled as personality disorder and is concerned to have no stimulant medication. He is also concerned about the length of time it will take to titrate Lamictal. Physical Exam Psychiatric Orientation: alert, oriented x 3 and cooperative Apperance: appropriately dressed and appropriately groomed Eye Contact: + fair eye contact Motor Behavior: steady gait and station Speech: normal rate/rhythm/volume of speech Affect: + tearful affect Mood: + depressed mood Thought Process: goal directed thought process Thought Content: + preoccupation Suicidal Thoughts: denies suicidal thoughts Homicidal Thoughts: denies homicidal thoughts Hallucinations: no auditory hallucinations and no visual hallucinations Cognition: recent memory grossly intact, remote memory grossly intact and language grossly intact Estimated Intelligence: + above average estimated intelligence Insight: + poor insight Judgement: + poor judgement Vital Signs (Past 24 Hours) Last Vital Signs Temp 37 C 12/31/19 06:37 Pulse 73 12/31/19 06:37 Resp 18 12/31/19 06:37 BP 125/78 12/31/19 06:37 Pulse Ox 99 12/29/19 20:18 Results & Data ([facility]) Current Inpatient Medications Current Inpatient Medications: Current Inpatient Medications Acetaminophen (Tylenol) 650 mg PO Q4H PRN PRN Reason: Headache or Minor Fever Stop: 01/28/20 20:34 Al Hydrox/Mg Hydrox/Simethicone (Maalox) 30 ml PO Q4H PRN PRN Reason: GI Upset Stop: 01/28/20 20:34 Bismuth Subsalicylate (Kaopectate) 15 ml PO PRN PRN PRN Reason: Loose Stool Stop: 01/28/20 20:35 Last Admin: 12/30/19 11:25 Dose: 15 ml Documented by: Bupropion HCl (Wellbutrin-Xl) 300 mg PO DAILY SHELLY Stop: 01/29/20 08:59 Last Admin: 12/31/19 09:03 Dose: 300 mg Documented by: Duloxetine HCl (Cymbalta) 60 mg PO DAILY SHELLY Stop: 01/29/20 08:59 Last Admin: 12/31/19 09:04 Dose: 60 mg Documented by: Guanfacine HCl (Guanfacine Hcl) 0.5 mg PO [id number] SHELLY Stop: 01/30/20 13:59 Hydroxyzine HCl (Vistaril) 50 mg PO HSZ PRN PRN Reason: Insomnia Stop: 01/28/20 20:34 Last Admin: 12/30/19 22:00 Dose: 50 mg Documented by: Hydroxyzine HCl (Vistaril) 25 mg PO Q4H PRN PRN Reason: Anxiety Stop: 01/28/20 20:34 Lamotrigine (Lamictal) 25 mg PO QAM SHELLY Stop: 01/29/20 15:59 Last Admin: 12/31/19 09:04 Dose: 25 mg Documented by: Magnesium Hydroxide (Milk Of Magnesia) 30 ml PO DAILY PRN PRN Reason: Constipation Stop: 01/28/20 20:34 Nicotine Polacrilex (Nicorette 2mg) 1 piece MT PRN PRN PRN Reason: Nicotine Cravings Stop: 01/29/20 08:37 Sodium Chloride ([place] Nasal) 1 - 2 sprays NA PRN PRN PRN Reason: Nasal Dryness/Congestion Stop: 01/28/20 20:34 Mental Health & Subst Abuse Tx Psychiatrist Name of Psychiatrist: Kourtney Concepcion Psychiatrist's Date of Appointment with Psychiatrist: 01/05/20 Time of Appointment with Psychiatrist: 10:20 a.m. Psychiatric Appointment Comment: [address], [address], [place] Therapist Name of Therapist: Kourtney Garcia Therapist's Date of Therapist Appointment: 01/11/20 Time of Therapist Appointment: 1:00 p.m. Therapy Appointment Comment: [address], [address], [place] Lightout Examiner Name of Lightout Examiner: none Post Discharge Appointments Primary Care Physician Name Of Family Doctor: Arsh - Dr. Robin Doe Primary Care Date of Appointment with PCP: 01/09/20 Time of Appointment with PCP: 11:20 a.m. Provider Appointment Comment: [address] [place] Specialist Name of Specialist: Arsh Murphy - Hematology and Oncology - Dr. Gaxiola Phone Number for Specialist: [phone] Time of Appointment with Specialist: Follow up according to your schedule Specialty Appointment Comment: [address], BRY Contact Information Discharge Discharge Address: [facility] [place] [address]
[2019-12-31] MEDS: GUANFACINE HCL 1 MG TAB PO SCH (13:45)
[2019-12-31] MEDS: NICOTINE POLACRILEX 2 MG GUM MT PRN ×2 (13:46→18:09)
[2019-12-31] MEDS: ACETAMINOPHEN 325 MG TAB PO PRN (21:47)
[2020-01-01] MEDS: GUANFACINE HCL 1 MG TAB PO SCH (09:09)
[2020-01-01] MEDS: DULOXETINE HCL 60 MG CAP PO SCH (09:09)
[2020-01-01] MEDS: BuPROPion XL 300 MG TABCR PO SCH (09:09)
[2020-01-01] MEDS: lamoTRIgine 25 MG TAB PO SCH (09:09)
[2020-01-01] MEDS: ACETAMINOPHEN 325 MG TAB PO PRN (13:21)
[2020-01-01] MEDS: NICOTINE POLACRILEX 2 MG GUM MT PRN (13:21)
--- NOTE | 2020-01-01 13:31 | Psychiatric Progress Note ---
Date of Service January 01, 2020 Impression / Recommendations Impression This 49-year-old man had recently reported, on an outpatient basis, that he was doing well and felt that his life was progressing in the direction that he had hoped that it would. 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 Specifically, in this case, he reportedly "stormed" out of the house (per message received from his yesterday), and reportedly had sent a message to his personnel office that suggested that he was actively suicidal and planning to kill himself in the here and now. Patient's had been advised to contact the police to see if they could find him. According to the patient, she did not and, instead, he eventually contacted her and agreed to proceed to the emergency department for an evaluation. This is a complicated case. The patient does have significant mood alterations, mostly depressive in nature. However, the bigger problem for the patient seems to be difficulty regulating his mood in the face of stressors, particularly feedback that he considers to be an affront to his sense of self. The incident that precipitated the current admission essentially constituted a narcissistic injury when his crossing supervisor condescended to him by telling him how to request time off (when he should have known that the patient knew how to do that) and, in the patient's view, implied that he, the patient, was not taking responsibility for his own decisions, such as to take time off from work. He gives lip service to understanding that his behaviors are substantially contributing to the set of difficulties that he describes, but after making what appeared to be gratuitous statement such as "I know that my behavior has a role in what happens!" He goes on to provide a string of externalized explanations for his circumstances. 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 However, the patient's assertion that the problematic behaviors that have come to light are somehow new or have only existed since his cancer diagnosis is not true based on the history that the patient has provided in other settings. He does seem to meet criteria for attention deficit hyperactivity disorder, and he had repeatedly reported favorable response to the use of stimulant medications. However, as his outpatient provider I was becoming progressively more skeptical because, for example, he told me at an encounter several months ago that he had been suspended from work for time and attendance issues, and he attributed his absenteeism to being overwhelmed and having difficulty concentrating, focusing, and completing tasks. There is also been a question raised regarding whether the patient is sometimes taking more Adderall than is being prescribed, and while he denies this, he repeatedly states that he feels he needs "more" because he is "so tired" all the time. (Also says that he is "so tired" because he is staying up late doing his work and trying to please his boss.) In this case, given the patient's explosive behaviors and the question of whether he is not properly using his Adderall I am discontinuing it and do not plan to re- prescribe it. We will continue his antidepressant medications, namely duloxetine 60 mg a day and bupropion extended release 300 mg a day, but we believe that it would be in his best interest to add a mood stabilizer. Also, the 2 antidepressant medications may be activating and it may be necessary to taper or discontinue bupropion. 12/30 Reviewed. Calmer today, more tearful. 8/2 more depressed following meeting with , hopeless about job (1) Threatening suicide: 12/30/19 -The patient has been admitted to the locked behavioral health unit and has been placed on close observation with suicide precautions. He is wood for safety on the unit. -The patient has been confronted about the fact that his threats of suicide were made indirectly and by inference, at least within the context of his contact with his employers personnel office. The patient asserts that while his threats may have been indirect or inferred, he is, in fact, actively suicidal and remained so as of today. When asked, he declines to disclose his intended method and just said "there are lots of ways." 12/30 reviewed (2) Major depression: 12/30/19 -Patient has a known history of recurrent major depressive episodes. These episodes do seem to occur independent of situational precipitants. However, the clinical picture is complicated by the fact that the patient, at baseline, has a great deal of difficulty regulating his mood and his behavior. For example, there is an extensive history of similar angry, dramatic, poorly controlled episodes, often involving his . -He has reported that his mood has improved response to the antidepressant medication duloxetine 60 mg a day, with bupropion XL 300 mg daily as an adjunct. However, he continues to have difficulty regulating his mood and tells us that even before the "run in" with his boss his mood was becoming progressively more depressed in the past several weeks. (An additional complicating factor is that during this period the patient had decided to stop taking Suboxone and was experiencing opioid withdrawal.) -I recommend that the patient start a mood stabilizer, namely lamotrigine, given his clear difficulty regulating his mood when under stress. Material risks of lamotrigine, including but not limited to Goldman-Chun syndrome were reviewed with the patient. He agreed that he would monitor for signs of a rash and would ask his or nursing staff to help him check. He was advised to notify us immediately if he develops a rash, particularly a rash that begins to spread. 12/30 reviewed (3) ADHD: 12/30/19 -The patient comes to us with a diagnosis of ADHD and does describe a longstanding history of difficulty concentrating, focusing, staying on task, avoiding unnecessary distractions, listening when being directly addressed, and forgetfulness. He had consistently reported favorable response to Adderall on an outpatient basis but, of note is the fact that he had been regularly asking for increases in his dose of Adderall after initially asserting satisfaction with his response that each dose level. Staff note that they have been advised that there is a suspicion that the patient is using more Adderall than has been prescribed, but the patient denies that this is true, and he has not requested refills of Adderall prematurely. Nevertheless, given his intermittent explosive behaviors, his difficulty regulating his mood, and his extensive mood irritability we have elected not to continue Adderall in the hospital, and the plan will be for him not to continue Adderall or other stimulant on an outpatient basis. 12/30 reviewed. Risks/benefits/alternatives reviewed re: ADHD med options, discussion included but was not limited to FDA warnings re: SI with Strattera (hx of past trial with PCP), risk of misuse/diversion with stimulant, and cardiovascular safety profile with alpha agonists. Patient agrees to a trial of guanfacine 0.5 mg BID starting this afternoon and then titration and transition to guanfacine ER upon discharge. 12/31--d/c regular release guanfacine, guanfacine ER 2 mg starting in am. (4) Personality disorder: 12/30/19 -The patient uses a number of fairly primitive defense mechanisms including denial, projection and labral externalization. Also, his periods of emotional dysregulation seem most likely to occur in situations in which he has received a narcissistic injury, or is sensing that people are not living up to his expectations, or that he is not being given appropriate credit for his hard work. The patient is being actively encouraged to look at the extent to which he attributes his disagreeable life circumstances to, essentially, what he perceives as the hostility or incompetence of other people. He has been advised that while certainly other people can be hostile and incompetent, he is unlikely to change their behavior, and the only behavior that he can actually changes his own. For example, I attempted to role-play with the patient a response that he could have given his crossing supervisor when his crossing supervisor sent the patient with the patient considered to be a condescending and insulting emailparticularly given the fact that the bosses inference was unfounded and the specific instance. The patient's instinct was to either ignore the bosses insult or send the boss they noticed that he, the patient, does not intend to tolerate condescension and hostility. I suggested that a different response might be to thank the crossing supervisor for his response and explained that he, the patient, had checked with specific persons in the department to make sure that his absence would not affect productivity on the specific projects in question and, in fact, he would have been happy to defer the requested time off had the feedback been otherwise. The patient is encouraged to work on these issues in individual 12/31--expressed interest in DBT. Inventory Assets Strengths: Intelligent. Employed. Needs: Greater sense of personal responsibility. Improved mood regulation. Resolution of active suicidal thoughts. Risk Factors Assessment Male: Yes : Yes Do You Have Access To A Gun?: No Health Problems: Yes Mental Health Diagnoses: Yes Substance Use Disorders: Yes Previous Attempt: No Family History of Suicide: No Previous Psychiatric Hospitalization: No Hopelessness: Yes Smoker: Yes Protective Factors Assessment Taoism Beliefs: No : Yes Responsible for Young Children: No Employed: Yes Stable Relationships: Yes Supportive Family: Yes Good Rapport with Provider: Yes Absence of Any Risk Factors Above: No Interval History Chief Complaint some headache, "so much is just too far gone". Review of Systems Sleep Information Total Hours of Sleep: 5.5 Sleep Comments: received an hs prn dose of vistaril for sleep aid then a 25 mg dose for relief from leg twitches at hs. did not think he would be able to fall asleep otherwise. watched tv/talked with peers till midnight Meal Information Percent Meal Consumed - Breakfast: 100 Percent Meal Consumed - Lunch: 100 Percent Meal Consumed - Dinner: 100 Subjective Subjective Patient was seen & assessed and interval progress reviewed with nursing and social work. Difficult meeting with , unclear either is particularly committed to the relationship moving forward. Today he seems more down, resisted meeting with me for 3-4 tries. He is upset about roommate's problems but also very self-critical re: work and unsure on ability to return as he perceives he is losing job. Encourage to talk to HR tomorrow. He expressed frustration with unstructured therapies and would like to purse CBT or DBT specially for ADHD and discussed that some programs may be available remotely as an adjunct to his current treatment. Discussed CRYSTAL last night and appears sedated today though he denies. Agreed to switch regular release guanfacine to sustained release as now formulary. Physical Exam Psychiatric Orientation: alert Apperance: appropriately groomed Eye Contact: + fair eye contact Motor Behavior: no abnormal motor movements Speech: normal rate/rhythm/volume of speech Affect: + depressed affect Mood: + depressed mood Thought Process: goal directed thought process Thought Content: reality based without delusions Suicidal Thoughts: denies suicidal thoughts Homicidal Thoughts: denies homicidal thoughts Insight: + limited insight Judgement: + limited judgement Vital Signs (Past 24 Hours) Last Vital Signs Temp 36.8 C 01/01/20 06:34 Pulse 73 01/01/20 06:35 Resp 18 01/01/20 06:34 BP 138/82 01/01/20 06:35 Pulse Ox 99 12/29/19 20:18 Results & Data ([facility]) Current Inpatient Medications Current Inpatient Medications: Current Inpatient Medications Acetaminophen (Tylenol) 650 mg PO Q4H PRN PRN Reason: Headache or Minor Fever Stop: 01/28/20 20:34 Last Admin: 01/01/20 13:21 Dose: 650 mg Documented by: Al Hydrox/Mg Hydrox/Simethicone (Maalox) 30 ml PO Q4H PRN PRN Reason: GI Upset Stop: 01/28/20 20:34 Bismuth Subsalicylate (Kaopectate) 15 ml PO PRN PRN PRN Reason: Loose Stool Stop: 01/28/20 20:35 Last Admin: 12/30/19 11:25 Dose: 15 ml Documented by: Bupropion HCl (Wellbutrin-Xl) 300 mg PO DAILY [facility] Stop: 01/29/20 08:59 Last Admin: 01/01/20 09:09 Dose: 300 mg Documented by: Duloxetine HCl (Cymbalta) 60 mg PO DAILY [facility] Stop: 01/29/20 08:59 Last Admin: 01/01/20 09:09 Dose: 60 mg Documented by: Guanfacine HCl (Guanfacine Hcl Er) 2 mg PO DAILY [facility] Stop: 02/01/20 08:59 Hydroxyzine HCl (Vistaril) 50 mg PO HSZ PRN PRN Reason: Insomnia Stop: 01/28/20 20:34 Last Admin: 12/31/19 22:53 Dose: 50 mg Documented by: Hydroxyzine HCl (Vistaril) 25 mg PO Q4H PRN PRN Reason: Anxiety Stop: 01/28/20 20:34 Last Admin: 12/31/19 23:53 Dose: 25 mg Documented by: Lamotrigine (Lamictal) 25 mg PO QAM [facility] Stop: 01/29/20 15:59 Last Admin: 01/01/20 09:09 Dose: 25 mg Documented by: Magnesium Hydroxide (Milk Of Magnesia) 30 ml PO DAILY PRN PRN Reason: Constipation Stop: 01/28/20 20:34 Nicotine Polacrilex (Nicorette 2mg) 1 piece MT PRN PRN PRN Reason: Nicotine Cravings Stop: 01/29/20 08:37 Last Admin: 01/01/20 13:21 Dose: 1 piece Documented by: Sodium Chloride (Larimer Nasal) 1 - 2 sprays NA PRN PRN PRN Reason: Nasal Dryness/Congestion Stop: 01/28/20 20:34 Mental Health & Subst Abuse Tx Psychiatrist Name of Psychiatrist: Kourtney Concepcion Psychiatrist's Date of Appointment with Psychiatrist: 01/05/20 Time of Appointment with Psychiatrist: 10:20 a.m. Psychiatric Appointment Comment: [address] Therapist Name of Therapist: Kourtney Garcia Therapist's Date of Therapist Appointment: 01/11/20 Time of Therapist Appointment: 1:00 p.m. Therapy Appointment Comment: [address] [place]older Name of Shell Molder: none Post Discharge Appointments Primary Care Physician Name Of Family Doctor: [facility] Date of Appointment with PCP: 01/09/20 Time of Appointment with PCP: 11:20 a.m. Provider Appointment Comment: [address] [place], [place] Specialist Name of Specialist: Arsh [place] - Hematology and Oncology - Dr. Gaxiola Phone Number for Specialist: [phone] Time of Appointment with Specialist: Follow up according to your schedule Specialty Appointment Comment: [address] [place], [place] Contact Information Discharge Discharge Address: [facility] [address] [place] [address]
[2020-01-02] MEDS: lamoTRIgine 25 MG TAB PO SCH (08:57)
[2020-01-02] MEDS: GUANFACINE HCL 1 MG ERTAB PO SCH (08:57)
[2020-01-02] MEDS: DULOXETINE HCL 60 MG CAP PO SCH (08:57)
[2020-01-02] MEDS: BuPROPion XL 300 MG TABCR PO SCH (08:58)
[2020-01-02] MEDS: NICOTINE POLACRILEX 2 MG GUM MT PRN ×2 (10:50→18:08)
--- NOTE | 2020-01-02 12:38 | Psychiatric Progress Note ---
Date of Service January 02, 2020 Impression / Recommendations Impression This 49-year-old man had recently reported, on an outpatient basis, that he was doing well and felt that his life was progressing in the direction that he had hoped that it would. 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 Specifically, in this case, he reportedly "stormed" out of the house (per message received from his yesterday), and reportedly had sent a message to his personnel office that suggested that he was actively suicidal and planning to kill himself in the here and now. Patient's had been advised to contact the police to see if they could find him. According to the patient, she did not and, instead, he eventually contacted her and agreed to proceed to the emergency department for an evaluation. This is a complicated case. The patient does have significant mood alterations, mostly depressive in nature. However, the bigger problem for the patient seems to be difficulty regulating his mood in the face of stressors, particularly feedback that he considers to be an affront to his sense of self. The incident that precipitated the current admission essentially constituted a narcissistic injury when his conditioning yard supervisor condescended to him by telling him how to request time off (when he should have known that the patient knew how to do that) and, in the patient's view, implied that he, the patient, was not taking responsibility for his own decisions, such as to take time off from work. He gives lip service to understanding that his behaviors are substantially contributing to the set of difficulties that he describes, but after making what appeared to be gratuitous statement such as "I know that my behavior has a role in what happens!" He goes on to provide a string of externalized explanations for his circumstances. 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 However, the patient's assertion that the problematic behaviors that have come to light are somehow new or have only existed since his cancer diagnosis is not true based on the history that the patient has provided in other settings. He does seem to meet criteria for attention deficit hyperactivity disorder, and he had repeatedly reported favorable response to the use of stimulant medications. However, as his outpatient provider I was becoming progressively more skeptical because, for example, he told me at an encounter several months ago that he had been suspended from work for time and attendance issues, and he attributed his absenteeism to being overwhelmed and having difficulty concentrating, focusing, and completing tasks. There is also been a question raised regarding whether the patient is sometimes taking more Adderall than is being prescribed, and while he denies this, he repeatedly states that he feels he needs "more" because he is "so tired" all the time. (Also says that he is "so tired" because he is staying up late doing his work and trying to please his boss.) In this case, given the patient's explosive behaviors and the question of whether he is not properly using his Adderall I am discontinuing it and do not plan to re- prescribe it. We will continue his antidepressant medications, namely duloxetine 60 mg a day and bupropion extended release 300 mg a day, but we believe that it would be in his best interest to add a mood stabilizer. Also, the 2 antidepressant medications may be activating and it may be necessary to taper or discontinue bupropion. 8 Reviewed. Calmer today, more tearful. 8/2 more depressed following meeting with , hopeless about job 01/01--although he denies suicidal ideation, he has a history of impulsivity (ADHD) and plan to crash car was viable. He is unable to engage fully in safety planning as no supports identified and currently angry with his outpatient providers. There are 22 shot guns (son's) in the home that need to be secured an d there is no clear plan re: whether or not he is returning to work which was main source of stress. (1) Threatening suicide: 12/30/19 -The patient has been admitted to the [facility] and has been placed on close observation with suicide precautions. He is wood for safety on the unit. -The patient has been confronted about the fact that his threats of suicide were made indirectly and by inference, at least within the context of his contact with his employers personnel office. The patient asserts that while his threats may have been indirect or inferred, he is, in fact, actively suicidal and remained so as of today. When asked, he declines to disclose his intended method and just said "there are lots of ways." 12/30 reviewed (2) Major depression: 12/30/19 -Patient has a known history of recurrent major depressive episodes. These episodes do seem to occur independent of situational precipitants. However, the clinical picture is complicated by the fact that the patient, at baseline, has a great deal of difficulty regulating his mood and his behavior. For example, there is an extensive history of similar angry, dramatic, poorly controlled episodes, often involving his . -He has reported that his mood has improved response to the antidepressant medication duloxetine 60 mg a day, with bupropion XL 300 mg daily as an adjunct. However, he continues to have difficulty regulating his mood and tells us that even before the "run in" with his boss his mood was becoming progressively more depressed in the past several weeks. (An additional complicating factor is that during this period the patient had decided to stop taking Suboxone and was experiencing opioid withdrawal.) -I recommend that the patient start a mood stabilizer, namely lamotrigine, given his clear difficulty regulating his mood when under stress. Material risks of lamotrigine, including but not limited to Goldman-Chun syndrome were reviewed with the patient. He agreed that he would monitor for signs of a rash and would ask his or nursing staff to help him check. He was advised to notify us immediately if he develops a rash, particularly a rash that begins to spread. 12/30 reviewed (3) ADHD: 12/30/19 -The patient comes to us with a diagnosis of ADHD and does describe a longstanding history of difficulty concentrating, focusing, staying on task, avoiding unnecessary distractions, listening when being directly addressed, and forgetfulness. He had consistently reported favorable response to Adderall on an outpatient basis but, of note is the fact that he had been regularly asking for increases in his dose of Adderall after initially asserting satisfaction with his response that each dose level. Staff note that they have been advised that there is a suspicion that the patient is using more Adderall than has been prescribed, but the patient denies that this is true, and he has not requested refills of Adderall prematurely. Nevertheless, given his intermittent explosive behaviors, his difficulty regulating his mood, and his extensive mood irritability we have elected not to continue Adderall in the hospital, and the plan will be for him not to continue Adderall or other stimulant on an outpatien t basis. 12/30 reviewed. Risks/benefits/alternatives reviewed re: ADHD med options, discussion included but was not limited to FDA warnings re: SI with Strattera (hx of past trial with PCP), risk of misuse/diversion with stimulant, and cardiovascular safety profile with alpha agonists. Patient agrees to a trial of guanfacine 0.5 mg BID starting this afternoon and then titration and transition to guanfacine ER upon discharge. 12/31--d/c regular release guanfacine, guanfacine ER 2 mg starting in am. 01/01 tolerating guanfacine but early in the day, he will be titrating Strattera on an outpatient basis. Now reports having clonidine 0.2 mg tabs at home for prn use for sleep that hasn't been given here. Reviewed should not take clonidine and guanfacine together. Guanfacine ER should be titrated to 3 mg after tomorrow with goal of 4 mg as tolerated. (4) Personality disorder: 12/30/19 -The patient uses a number of fairly primitive defense mechanisms including denial, projection and labral externalization. Also, his periods of emotional dysregulation seem most likely to occur in situations in which he has received a narcissistic injury, or is sensing that people are not living up to his expectations, or that he is not being given appropriate credit for his hard work. The patient is being actively encouraged to look at the extent to which he attributes his disagreeable life circumstances to, essentially, what he perceives as the hostility or incompetence of other people. He has been advised that while certainly other people can be hostile and incompetent, he is unlikely to change their behavior, and the only behavior that he can actually changes his own. For example, I attempted to role-play with the patient a response that he could have given his conditioning yard supervisor when his conditioning yard supervisor sent the patient with the patient considered to be a condescending and insulting emailparticularly given the fact that the bosses inference was unfounded and the specific instance. The patient's instinct was to either ignore the bosses insult or send the boss they noticed that he, the patient, does not intend to tolerate condescension and hostility. I suggested that a different response might be to thank the conditioning yard supervisor for his response and explained that he, the patient, had checked with specific persons in the department to make sure that his absence would not affect productivity on the specific projects in question and, in fact, he would have been happy to defer the requested time off had the feedback been otherwise. The patient is encouraged to work on these issues in individual 12/31--expressed interest in DBT. Inventory Assets Strengths: Intelligent. Employed. Needs: Greater sense of personal responsibility. Improved mood regulation. Resolution of active suicidal thoughts. Risk Factors Assessment Male: Yes : Yes Do You Have Access To A Gun?: No Health Problems: Yes Mental Health Diagnoses: Yes Substance Use Disorders: Yes Previous Attempt: No Family History of Suicide: No Previous Psychiatric Hospitalization: No Hopelessness: Yes Smoker: Yes Protective Factors Assessment Sikhism Beliefs: No : Yes Responsible for Young Children: No Employed: Yes Stable Relationships: Yes Supportive Family: Yes Good Rapport with Provider: Yes Absence of Any Risk Factors Above: No Interval History Chief Complaint "I can't think of a single person I can reach out to". Review of Systems Sleep Information Total Hours of Sleep: 6 Sleep Comments: received an hs prn dose of vistaril for sleep aid then a 25 mg dose for relief from leg twitches at hs. did not think he would be able to fall asleep otherwise. watched tv/talked with peers till midnight Meal Information Percent Meal Consumed - Breakfast: 100 Percent Meal Consumed - Lunch: 100 Percent Meal Consumed - Dinner: 100 Subjective Subjective Patient was seen & assessed and interval progress reviewed with treatment team. Denies CRYSTAL today. Denies suicidal thoughts on unit last pm. Describes relationship with as cold, accusing and unsupportive. Describes boss as same and spent some time discussing his father and how that transference played out in meeting with Dr. Concepcion. He remains interested in group DBT or via telehealth to supplement his current work/providers. He got first dose of Intuniv this am. He did contact his HR department re: FMLA but hasn't heard back so no disposition re: work time which is his main stressor. Physical Exam Psychiatric Orientation: alert Apperance: appropriately dressed and appropriately groomed Eye Contact: + fair eye contact Motor Behavior: steady gait and station Speech: normal rate/rhythm/volume of speech Affect: + depressed affect Mood: + depressed mood Thought Process: goal directed thought process Thought Content: reality based without delusions Suicidal Thoughts: denies suicidal thoughts Homicidal Thoughts: denies homicidal thoughts Hallucinations: no auditory hallucinations and no visual hallucinations Insight: + limited insight Judgement: + limited judgement Vital Signs (Past 24 Hours) Last Vital Signs Temp 36.7 C 01/02/20 06:59 Pulse 70 01/02/20 07:00 Resp 16 01/02/20 06:59 BP 123/81 01/02/20 07:00 Pulse Ox 99 12/29/19 20:18 Results & Data ([facility]) Current Inpatient Medications Current Inpatient Medications: Current Inpatient Medications Acetaminophen (Tylenol) 650 mg PO Q4H PRN PRN Reason: Headache or Minor Fever Stop: 01/28/20 20:34 Last Admin: 01/01/20 13:21 Dose: 650 mg Documented by: Al Hydrox/Mg Hydrox/Simethicone (Maalox) 30 ml PO Q4H PRN PRN Reason: GI Upset Stop: 01/28/20 20:34 Bismuth Subsalicylate (Kaopectate) 15 ml PO PRN PRN PRN Reason: Loose Stool Stop: 01/28/20 20:35 Last Admin: 12/30/19 11:25 Dose: 15 ml Documented by: Bupropion HCl (Wellbutrin-Xl) 300 mg PO DAILY [facility] Stop: 01/29/20 08:59 Last Admin: 01/02/20 08:58 Dose: 300 mg Documented by: Duloxetine HCl (Cymbalta) 60 mg PO DAILY [facility] Stop: 01/29/20 08:59 Last Admin: 01/02/20 08:57 Dose: 60 mg Documented by: Guanfacine HCl (Guanfacine Hcl Er) 2 mg PO DAILY [facility] Stop: 02/01/20 08:59 Last Admin: 01/02/20 08:57 Dose: 2 mg Documented by: Hydroxyzine HCl (Vistaril) 50 mg PO HSZ PRN PRN Reason: Insomnia Stop: 01/28/20 20:34 Last Admin: 01/01/20 22:56 Dose: 50 mg Documented by: Hydroxyzine HCl (Vistaril) 25 mg PO Q4H PRN PRN Reason: Anxiety Stop: 01/28/20 20:34 Last Admin: 12/31/19 23:53 Dose: 25 mg Documented by: Lamotrigine (Lamictal) 25 mg PO QAM SHELLY Stop: 01/29/20 15:59 Last Admin: 01/02/20 08:57 Dose: 25 mg Documented by: Magnesium Hydroxide (Milk Of Magnesia) 30 ml PO DAILY PRN PRN Reason: Constipation Stop: 01/28/20 20:34 Nicotine Polacrilex (Nicorette 2mg) 1 piece MT PRN PRN PRN Reason: Nicotine Cravings Stop: 01/29/20 08:37 Last Admin: 01/02/20 10:50 Dose: 1 piece Documented by: Sodium Chloride (King Nasal) 1 - 2 sprays NA PRN PRN PRN Reason: Nasal Dryness/Congestion Stop: 01/28/20 20:34 Mental Health & Subst Abuse Tx Psychiatrist Name of Psychiatrist: Kourtney Concepcion Psychiatrist's Date of Appointment with Psychiatrist: 01/05/20 Time of Appointment with Psychiatrist: 10:20 a.m. Psychiatric Appointment Comment: [address] Therapist Name of Therapist: Kourtney Garcia Therapist's Date of Therapist Appointment: 01/11/20 Time of Therapist Appointment: 1:00 p.m. Therapy Appointment Comment: [address] Turner Machine Operator Name of Turner Machine Operator: none Post Discharge Appointments Primary Care Physician Name Of Family Doctor: [facility] Date of Appointment with PCP: 01/09/20 Time of Appointment with PCP: 11:20 a.m. Provider Appointment Comment: [address] [facility] [place] Specialist Name of Specialist: [facility] [place] - Hematology and Oncology - Dr. Gaxiola Phone Number for Specialist: [phone] Time of Appointment with Specialist: Follow up according to your schedule Specialty Appointment Comment: [address] [facility] [place] Contact Information Discharge Discharge Address: [facility] [address], [place] [address]
[2020-01-03] MEDS: lamoTRIgine 25 MG TAB PO SCH (08:55)
[2020-01-03] MEDS: BuPROPion XL 300 MG TABCR PO SCH (08:55)
[2020-01-03] MEDS: GUANFACINE HCL 1 MG ERTAB PO SCH (08:55)
[2020-01-03] MEDS: DULOXETINE HCL 60 MG CAP PO SCH (08:55)
[2020-01-03] MEDS: NICOTINE POLACRILEX 2 MG GUM MT PRN ×3 (12:50→18:23)
--- NOTE | 2020-01-03 13:46 | Psychiatric Progress Note ---
Date of Service January 03, 2020 Impression / Recommendations Impression Per H&P Assessment - This 49-year-old man had recently reported, on an outpatient basis, that he was doing well and felt that his life was progressing in the direction that he had hoped that it would. 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 Specifically, in this case, he reportedly "stormed" out of the house (per message received from his yesterday), and reportedly had sent a message to his personnel office that suggested that he was actively suicidal and planning to kill himself in the here and now. Patient's had been advised to contact the police to see if they could find him. According to the patient, she did not and, instead, he eventually contacted her and agreed to proceed to the emergency department for an evaluation. This is a complicated case. The patient does have significant mood alterations, mostly depressive in nature. However, the bigger problem for the patient seems to be difficulty regulating his mood in the face of stressors, particularly feedback that he considers to be an affront to his sense of self. 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 He gives lip service to understanding that his behaviors are substantially contributing to the set of difficulties that he describes, but after making what appeared to be gratuitous statement such as "I know that my behavior has a role in what happens!" He goes on to provide a string of externalized explanations for his circumstances. 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 However, the patient's assertion that the problematic behaviors that have come to light are somehow new or have only existed since his cancer diagnosis is not true based on the history that the patient has provided in other settings. He does seem to meet criteria for attention deficit hyperactivity disorder, and he had repeatedly reported favorable response to the use of stimulant medications. However, as his outpatient provider I was becoming progressively more skeptical because, for example, he told me at an encounter several months ago that he had been suspended from work for time and attendance issues, and he attributed his absenteeism to being overwhelmed and having difficulty concentrating, focusing, and completing tasks. There is also been a question raised regarding whether the patient is sometimes taking more Adderall than is being prescribed, and while he denies this, he repeatedly states that he feels he needs "more" because he is "so tired" all the time. (Also says that he is "so tired" because he is staying up late doing his work and trying to please his boss.) In this case, given the patient's explosive behaviors and the question of whether he is not properly using his Adderall I am discontinuing it and do not plan to re- prescribe it. We will continue his antidepressant medications, namely duloxetine 60 mg a day and bupropion extended release 300 mg a day, but we believe that it would be in his best interest to add a mood stabilizer. Also, the 2 antidepressant medications may be activating and it may be necessary to taper or discontinue bupropion. (1) Threatening suicide: 12/30/19 -The [facility] and has been placed on close observation with suicide precautions. He is wood for safety on the unit. -The patient has been confronted about the fact that his threats of suicide were made indirectly and by inference, at least within the context of his contact with his employers personnel office. The patient asserts that while his threats may have been indirect or inferred, he is, in fact, actively suicidal and remained so as of today. When asked, he declines to disclose his intended method and just said "there are lots of ways." 12/30 reviewed 01/02 - Pt is denying SI today (2) Major depression: 12/30/19 -Patient has a known history of recurrent major depressive episodes. These episodes do seem to occur independent of situational precipitants. However, the clinical picture is complicated by the fact that the patient, at baseline, has a great deal of difficulty regulating his mood and his behavior. For example, there is an extensive history of similar angry, dramatic, poorly controlled episodes, often involving his . -He has reported that his mood has improved response to the antidepressant medication duloxetine 60 mg a day, with bupropion XL 300 mg daily as an adjunct. However, he continues to have difficulty regulating his mood and tells us that even before the "run in" with his boss his mood was becoming progressively more depressed in the past several weeks. (An additional complicating factor is that during this period the patient had decided to stop taking Suboxone and was experiencing opioid withdrawal.) -I recommend that the patient start a mood stabilizer, namely lamotrigine, given his clear difficulty regulating his mood when under stress. Material risks of lamotrigine, including but not limited to Goldman-Chun syndrome were reviewed with the patient. He agreed that he would monitor for signs of a rash and would ask his or nursing staff to help him check. He was advised to notify us immediately if he develops a rash, particularly a rash that begins to spread. 12/30 reviewed 01/02 - Continue current medication regimen - Pt has already had phone meeting with , is scheduled with outpatient providers, and completed phone intake to work toward DBT groups through the [facility] - Pt agreeable with discharge tomorrow (3) ADHD: 12/30/19 -The patient comes to us with a diagnosis of ADHD and does describe a longstanding history of difficulty concentrating, focusing, staying on task, avoiding unnecessary distractions, listening when being directly addressed, and forgetfulness. He had consistently reported favorable response to Adderall on an outpatient basis but, of note is the fact that he had been regularly asking for increases in his dose of Adderall after initially asserting satisfaction with his response that each dose level. Staff note that they have been advised that there is a suspicion that the patient is using more Adderall than has been prescribed, but the patient denies that this is true, and he has not requested refills of Adderall prematurely. Nevertheless, given his intermittent explosive behaviors, his difficulty regulating his mood, and his extensive mood irritability we have elected not to continue Adderall in the hospital, and the plan will be for him not to continue Adderall or other stimulant on an outpatient basis. 12/30 reviewed. Risks/benefits/alternatives reviewed re: ADHD med options, discussion included but was not limited to FDA warnings re: SI with Strattera (hx of past trial with PCP), risk of misuse/diversion with stimulant, and cardiovascular safety profile with alpha agonists. Patient agrees to a trial of guanfacine 0.5 mg BID starting this afternoon and then titration and transition to guanfacine ER upon discharge. 12/31--d/c regular release guanfacine, guanfacine ER 2 mg starting in am. 01/01 tolerating guanfacine but early in the day, he will be titrating Strattera on an outpatient basis. Now reports having clonidine 0.2 mg tabs at home for prn use for sleep that hasn't been given here. Reviewed should not take clonidine and guanfacine together. Guanfacine ER should be titrated to 3 mg after tomorrow with goal of 4 mg as tolerated. 01/02 - Titrating guanfacine ER to 3mg daily based on plan discussed above (4) Personality disorder: 12/30/19 -The patient uses a number of fairly primitive defense mechanisms including denial, projection and labral externalization. Also, his periods of emotional dysregulation seem most likely to occur in situations in which he has received a narcissistic injury, or is sensing that people are not living up to his expectations, or that he is not being given appropriate credit for his hard work. The patient is being actively encouraged to look at the extent to which he attributes his disagreeable life circumstances to, essentially, what he perceives as the hostility or incompetence of other people. He has been advised that while certainly other people can be hostile and incompetent, he is unlikely to change their behavior, and the only behavior that he can actually changes his own. For example, I attempted to role-play with the patient a response that he could have given his grain and yeast plants supervisor when his grain and yeast plants supervisor sent the patient with the patient considered to be a condescending and insulting emailparticularly given the fact that the bosses inference was unfounded and the specific instance. The patient's instinct was to either ignore the bosses insult or send the boss they noticed that he, the patient, does not intend to tolerate condescension and hostility. I suggested that a different response might be to thank the grain and yeast plants supervisor for his response and explained that he, the patient, had checked with specific persons in the department to make sure that his absence would not affect productivity on the specific projects in question and, in fact, he would have been happy to defer the requested time off had the feedback been otherwise. The patient is encouraged to work on these issues in individual 12/31--expressed interest in DBT. 01/02 - Pt completed phone intake with [facility] - will be scheduled with intake appointments. Individual therapy will be required before patient can be placed in a DBT group. Pt continues to be motivated to follow through with this option. Inventory Assets Strengths: Intelligent. Employed. Needs: Greater sense of personal responsibility. Improved mood regulation. Resolution of active suicidal thoughts. Risk Factors Assessment Male: Yes : Yes Do You Have Access To A Gun?: No Health Problems: Yes Mental Health Diagnoses: Yes Substance Use Disorders: Yes Previous Attempt: No Family History of Suicide: No Previous Psychiatric Hospitalization: No Hopelessness: Yes Smoker: Yes Protective Factors Assessment Hindu Beliefs: No : Yes Responsible for Young Children: No Employed: Yes Stable Relationships: Yes Supportive Family: Yes Good Rapport with Provider: Yes Absence of Any Risk Factors Above: No Interval History Identifying Information YADI FREEMAN is a 49-year-old M who currently lives locally with his . He has a history of major depression, anxiety, ADHD, and a neuroendocrine carcinoma x4- 5 years. He was admitted on 12/29/19 19:38 on a 201 voluntary commitment for depression and suicidality. Chief Complaint "Um, I'm feeling a little tired today." Review of Systems Notes Constitutional: reports mild fatigue Cardiovascular: denied Respiratory: denied Gastrointestinal: denied Neurological: denied Psychiatric: denies symptoms other than stated above Total of at least 10 systems reviewed, pertinent positives as above and in HPI. Sleep Information Total Hours of Sleep: 7.25 Sleep Comments: received an hs prn dose of vistaril for sleep aid then a 25 mg dose for relief from leg twitches at hs. did not think he would be able to fall asleep otherwise. watched tv/talked with peers till midnight Meal Information Percent Meal Consumed - Breakfast: 100 Percent Meal Consumed - Lunch: 100 Percent Meal Consumed - Dinner: 100 Subjective Subjective Patient was seen & assessed and interval progress reviewed with nursing and social work. Staff report the patient has been emotionally labile and continues to demonstrate difficulty regulating his emotions. He did have a family meeting with his over the weekend to discuss safety and discharge planning. Pt was seen today to assess progress since admission. Pt states he is feeling "a little tired today", but otherwise is doing well. He continues to verbalize perception that he has limited outpatient supports, and continues to externalize blame with various topics he brings up. Overall, patient reports feeling that exploring CBT and DBT options will allow him to "live the life I want to live." Pt focuses heavily on limitations he believes he acquired from his history of anxiety and ADHD and is hopeful to work through these things. Pt denies SI at this time. We did discuss follow-up appointments, the first of which is on 01/04, and how this plays into his discharge timeline. Pt does feel that he would be ready for discharge tomorrow. We reviewed his current medication regimen and questions were answered. He denied other needs or concerns today. Physical Exam Psychiatric Orientation: alert, oriented x 3 and cooperative (superficially) Apperance: appropriately dressed (casually, in jeans and a long-sleeve t-shirt), appropriately groomed and appeared stated age Eye Contact: good eye contact Motor Behavior: no abnormal motor movements (observed while sitting and laying on bed) Speech: normal rate/rhythm/volume of speech (rambling) Affect: + blunted affect Mood: + depressed mood (but reports improvement since admission) Thought Process: goal directed thought process and clear/coherent thought process Thought Content: + cognitive distortions (likely consistent with personality disorder traits); no delusions, no hopelessness and no worthlessness Suicidal Thoughts: denies suicidal thoughts and denies suicidal intent Homicidal Thoughts: denies homicidal thoughts Hallucinations: no auditory hallucinations and no visual hallucinations Cognition: attention grossly intact and language grossly intact Estimated Intelligence: consistent with education level Insight: + fair insight Judgement: + fair judgement Vital Signs (Past 24 Hours) Last Vital Signs Temp 36.6 C 01/03/20 06:00 Pulse 77 01/03/20 06:31 Resp 16 01/03/20 06:00 BP 119/71 01/03/20 06:31 Pulse Ox 99 12/29/19 20:18 Results & Data ([facility]) Current Inpatient Medications Current Inpatient Medications: Current Inpatient Medications Acetaminophen (Tylenol) 650 mg PO Q4H PRN PRN Reason: Headache or Minor Fever Stop: 01/28/20 20:34 Last Admin: 01/01/20 13:21 Dose: 650 mg Documented by: Al Hydrox/Mg Hydrox/Simethicone (Maalox) 30 ml PO Q4H PRN PRN Reason: GI Upset Stop: 01/28/20 20:34 Bismuth Subsalicylate (Kaopectate) 15 ml PO PRN PRN PRN Reason: Loose Stool Stop: 01/28/20 20:35 Last Admin: 12/30/19 11:25 Dose: 15 ml Documented by: Bupropion HCl (Wellbutrin-Xl) 300 mg PO DAILY [facility] Stop: 01/29/20 08:59 Last Admin: 01/03/20 08:55 Dose: 300 mg Documented by: Duloxetine HCl (Cymbalta) 60 mg PO DAILY [facility] Stop: 01/29/20 08:59 Last Admin: 01/03/20 08:55 Dose: 60 mg Documented by: Guanfacine HCl (Guanfacine Hcl Er) 2 mg PO DAILY [facility] Stop: 02/01/20 08:59 Last Admin: 01/03/20 08:55 Dose: 2 mg Documented by: Hydroxyzine HCl (Vistaril) 50 mg PO HSZ PRN PRN Reason: Insomnia Stop: 01/28/20 20:34 Last Admin: 01/02/20 23:02 Dose: 50 mg Documented by: Hydroxyzine HCl (Vistaril) 25 mg PO Q4H PRN PRN Reason: Anxiety Stop: 01/28/20 20:34 Last Admin: 12/31/19 23:53 Dose: 25 mg Documented by: Lamotrigine (Lamictal) 25 mg PO QAM [facility] Stop: 01/29/20 15:59 Last Admin: 01/03/20 08:55 Dose: 25 mg Documented by: Magnesium Hydroxide (Milk Of Magnesia) 30 ml PO DAILY PRN PRN Reason: Constipation Stop: 01/28/20 20:34 Nicotine Polacrilex (Nicorette 2mg) 1 piece MT PRN PRN PRN Reason: Nicotine Cravings Stop: 01/29/20 08:37 Last Admin: 01/03/20 12:50 Dose: 1 piece Documented by: Sodium Chloride ([place] Nasal) 1 - 2 sprays NA PRN PRN PRN Reason: Nasal Dryness/Congestion Stop: 01/28/20 20:34 Mental Health & Subst Abuse Tx Psychiatrist Name of Psychiatrist: [facility] Date of Appointment with Psychiatrist: 01/05/20 Time of Appointment with Psychiatrist: 10:20 a.m. Psychiatric Appointment Comment: [address] Therapist Name of Therapist: Kourtney Garcia Therapist's Date of Therapist Appointment: 01/11/20 Time of Therapist Appointment: 1:00 p.m. Therapy Appointment Comment: [address] College Sports Coach Name of College Sports Coach: none Post Discharge Appointments Primary Care Physician Name Of Family Doctor: [facility] - Dr. Robin Doe Primary Care Date of Appointment with PCP: 01/09/20 Time of Appointment with PCP: 11:20 a.m. Provider Appointment Comment: [address] [place], [place] Specialist [facility] [place] [facility] and On[facility] - Dr. Gaxiola Phone Number for Specialist: [phone] Time of Appointment with Specialist: Follow up according to your schedule Specialty Appointment Comment: [address] [place] Other #1: Name of Aftercare Appointment: [facility] Phone Number of Aftercare Appointment: [phone] Aftercare Appointment Comment: Please contact to initiate referral for DBT therapy and DBT groups Contact Information Discharge Discharge Address: [facility] [address] [place], [place] [address]
[2020-01-04 07:03] VITALS: PULSE 67; TEMP 98.1
[2020-01-04 08:49] LABS: Amphetamine Urine, Confirm 4960 ng/mL (<250); MDA negative; MDEA negative; MDMA (Ecstasy) Urine, Confirm negative; Methamphetamine, Ur Confirm NEGATIVE ng/mL (<250)
[2020-01-04] MEDS ORDERED: GUANFACINE HCL 1 MG ERTAB PO SCH (09:00)
[2020-01-04] MEDS: lamoTRIgine 25 MG TAB PO SCH (09:01)
[2020-01-04] MEDS: DULOXETINE HCL 60 MG CAP PO SCH (09:01)
[2020-01-04] MEDS: BuPROPion XL 300 MG TABCR PO SCH (09:01)
[2020-01-04 09:40] VITALS: BP 119/71
--- NOTE | 2020-01-04 09:43 | Discharge Summary ---
Date of Service January 04, 2020 History of Present Illness The patient is a 49-year-old man known to me through recent contacts as his outpatient psychiatrist subsequent to his transfer from a different psychiatric provider. This is a complex case that includes a history of prescription opioid dependence, Suboxone treatment, recurrent episodes of major depression, severe difficulty regulating his mood, generalized anxiety, certain cluster B personality features, marital difficulties, work performance issues, and a history of an active diffuse neuroendocrine carcinoma. Patient reports that for the past week and a half or so he has been experiencing increasing depression accompanied with thoughts of suicide. As above, there have been ongoing difficulties with his work performance and he had fairly recently been suspended for time and attendance issues. 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 Also, his reportedly has been encouraging him to stop Suboxone, and he indicates that he experienced withdrawal symptoms into the present week after he abruptly discontinued Suboxone "to get my off my back." He reports that the incident that precipitated the current admission was the fact that he felt that his "work life balance" was "unbalanced," and so he decided that he wanted to take 1 or possibly 2 days off from work. Within this context, he checked the status of several projects on which she was collaborating with his coworkers and was told that the projects, request for proposals, or in good shape and that it would not affect the proposals if he took 1 or 2 days off at this point. The patient tells us that he then emailed his pharmaceutical compounding supervisor and said that he wanted to take 1 and possibly 2 days off. By the patient's own admission, he did not inform the boss that he had already checked his make sure that his taking time off would not interfere with either of the above referenced projects in which she was working. The bus wrote back, told him to request the time off through the electronic automated system, and, seemingly gratuitously to the patient, said something such as, "it is not my job to make sure that it is okay for you to take time off from work." The patient did not respond, but felt diminished and extremely irritated. He tells me that he was already irritated because his had not been particularly supportive while he was going through withdrawal from Suboxone, even though he asked her to "give [him] a little bit of encouragement every now and then" during withdrawal. Within this context, he says that he received a text message from a chief accounting officer at his job asking for clarification regarding his request for leave time. The patient acknowledged that his response was to indicate that he was "done" and might not be alive the next day. The patient acknowledges that he knew that he was making a reference to suicide and that the statement would be interpreted that way, particularly because the chief accounting officer is reportedly a friend of the patient and is aware of his ongoing depression. The patient then said that he made the statement intentionally in order to communicate his level of distressbut, also, he reiterates that he truly was planning to commit suicide at that point. During the encounter, the patient was confronted a number of times about the fact that in each instance he portrays himself as the victim or at least recipient of the incompetence, and difference, and unexplained hostility of other people. These included people at work, his , the emergency room staff who reportedly did not inform him about his lab results, and his outpatient psychiatric providers, including me, for not giving him the treatment that he "obviously" needs which he believes is cognitive behavioral therapy. Later, the patient shifted to blaming his behaviors on his neuroendocrine tumors and said (in a manner inconsistent with his history) and that none of the behaviors that we are witnessing currently were present before he was diagnosed with cancer. At several points the patient reiterated that he is currently suicidal, but would not disclose his planned method. At the same time, the patient has put in a 72- hour notice of intent to terminate inpatient treatment at the hospital, and he was advised that given that he has repeatedly threatened suicide and is, in fact, today threatening suicide I would strongly recommend that he retract his voluntary notice and continue in treatment. I also told him that I would strongly suggest that he spend the time in treatment understanding what is about his behavior that seems to alienate other people, turn allies and adversaries, and engage in self-destructive behaviors. This and raised the patient and he say things such as "I take full responsibility for my behavior. But, I do not have to be treated the way Manny (his boss) talks to me." He also made statements such as "I have no energy. I work all the time. I work, work, work, work, work, work, come home and go to bed, get up in the morning, go to work, work, work, work, work, repeat." When asked what steps he has taken to ameliorate the situation and, specifically, if he is considering applying for a different job he said "you mean 1 with the same pay with the same paresthesias the same status?" When I push the point he said, yes, I have decided to apply for disability." When I ask him what this is about him that has rendered him disabled he became angry again and said "I have read that most people who have the kind of cancer I have are disabled." When I pushed and said that I was not asking what most people do I was asking him to explain that if his problems at work are not related to his own behaviors but, instead, to the behaviors of certain coworkers or supervisory staff, what would be the basis for him saying that he, himself, is disabledrather than the other persons who he is describing is hostile and incompetent. The patient responded, "oh my God. No one cares." It took a series of confrontation, but the patient did turn around and expressing interest to examine his own behaviors and take some responsibility for those portions of his behaviors that he feels that he can reasonably be expected to manage. We also discussed alternative treatments, such as mood stabilizers given his expressed and admitted difficulty regulating his mood and his behaviors when under stress. Although I do feel that the patient meets criteria for ADHD, I am not recommending that we continue stimulant medication given the impulsive, somewhat explosive behavior of the patient there have also been reports that the patient may be misusing Adderall. Physical Exam Psychiatric Orientation: alert and cooperative Apperance: appropriately dressed and appropriately groomed Eye Contact: good eye contact Motor Behavior: steady gait and station and no abnormal motor movements Speech: normal rate/rhythm/volume of speech Affect: euthymic affect "Good, a little anxious." Thought Process: goal directed thought process Thought Content: reality based without delusions Suicidal Thoughts: denies suicidal thoughts Homicidal Thoughts: denies homicidal thoughts Hallucinations: no auditory hallucinations Cognition: recent memory grossly intact, attention grossly intact and language grossly intact Estimated Intelligence: average estimated intelligence Insight: + fair insight Judgement: + fair judgement Vital Signs (Past 24 Hours) Last Vital Signs Temp 36.7 C 01/04/20 07:01 Pulse 67 01/04/20 07:02 Resp 16 01/04/20 07:01 BP 122/76 01/04/20 07:02 Pulse Ox 99 12/29/19 20:18 Principal Diagnosis Major depressive disorder, recurrent, severe without psychosis ADHD Personality disorder with cluster B traits Psychiatric Data Patient was hospitalized for 6 days. On admission, Adderall was discontinued due to misuse and behavioral dyscontrol/explosive outbursts, while duloxetine and bupropion were continued at his home doses. Lamotrigine was started for mood stabilization. On hospital day #2, he agreed to a trial of guanfacine for ADHD symptoms, initially started 0.5 mg twice daily, then switched to guanfacine ER and titrated to 3 mg daily. He was active in the milieu, and attended and participated in groups and therapy. He had a family meeting with his and the long term care social worker on 12/31/2019; significant communication issues were noted. His is angry about his substance abuse and anger, viewing these things as intentional on his part. She appeared ambivalent about whether she wanted to continue in the relationship, and marital therapy was recommended. He reported the problems in their marriage have been going on for years, since the time of his cancer diagnosis. He had surgery and afterwards spent his time playing video games, and became addicted to opiate pain medications. He also started using medical marijuana and his observed that he was stoned much of the time. They described that over time their communication has eroded and resentments continue to build. She recently had surgery and the patient would not support her, so she then refused to be involved and the patient decided to come to the hospital. He also discussed his work stress, as his performance has been poor, which his blames on substance abuse. The patient wanted to address his 's relationship with his daughter. His stated that she is not her mother, and the patient needs to accept that they will never have a loving relationship. He had hoped they could be a family, and that his daughter would visit and they would spend holidays together, but his stated that she no longer wanted to try to build the relationship. He processed the family meeting with staff counselor afterwards. Patient reported improved mood and resolution of suicidal thoughts, and expressed interest in DBT and was referred to the [facility] psychological clinic and placed on their wait list. Day of Discharge Assessment Staff report the patient is attending and participating in groups and therapy, reports that his mood is markedly improved, and continues to deny suicidal thoughts. He completed his discharge safety plan. He told staff that he will be his , and that he feels less anxious since making this decision. On my assessment, he reports his mood has improved significantly from admission, stating it was -5 at that time and is now 7/10. He denies suicidal thoughts and feels safe leaving the hospital. Anxiety has improved but ongoing, and states he is anxious about going home as "I don't have the best support group, they don't a lot of understanding about what exactly is going through my head." He says he has not spoken to his since their meeting 4 days ago, and he is ambivalent about the marriage, stating they "have a lot to get through." He says he knows he should call his as "we need to talk," as he has "realized a few things that's she's been telling me for years," but is worried that if he tells her, she will react angrily instead of being thankful. He reviews multiple grievances he has about his . He also reports unhappiness with his outpatient clinicians, stating he wished he was able to spend an hour with Dr. Concepcion each time, but the assessment on admission was not to his liking as "it was like I was talking to my grandpa or something, and if it's going to be like that, I may have no choice but to see someone else, because I won't grow with that approach." He has enjoyed the groups here, states he is "here to help people," and is hopeful to get into DBT at the [facility]. He asks questions about the difference between CBT and DBT, and notes that he has "an extreme, heightened sensitivity to rejection, which leads to a tendency to be oppositional, defiant." He is able to review his safety plan as well as his plan to increase structure, return to regular exercise, and build interpersonal relationships. He denies side effects other than some mild morning ligh theadedness. 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 Risk Factors Assessment Risk factors were mitigated by admission to the inpatient unit, adjustment of medications, discontinuing medications that were worsening symptoms/being misused, coordination with outpatient clinicians, referral for DBT, involvement in groups and therapy, working on healthy coping skills and discharge safety plan, and family meeting with . He has demonstrated improvement in mood and anxiety, suicidal thoughts have resolved, he is taking medications as prescribed, performing ADLs independently, and stating willingness to follow-up with outpatient treatment. He is requesting discharge and is no longer at acute risk of harm to himself, so can be managed as an outpatient at this time. He has not endorsed thoughts to harm others, has not been aggressive or threatening here, and is not at acute risk of harm to others. Male: Yes : Yes Do You Have Access To A Gun?: No Health Problems: Yes Mental Health Diagnoses: Yes Substance Use Disorders: Yes Previous Attempt: No Family History of Suicide: No Previous Psychiatric Hospitalization: No Hopelessness: Yes Smoker: Yes Protective Factors Assessment Jewish Beliefs: No : Yes Responsible for Young Children: No Employed: Yes Stable Relationships: Yes Supportive Family: Yes Good Rapport with Provider: Yes Absence of Any Risk Factors Above: No Tobacco Cessation at Discharge Tobacco Cessation Medication Prescribed at Discharge: Not Applicable/Non-Smoker Total Time Total Time Spent: Greater Than 30 Minutes Total Time Includes: Examination of the patient, Discharge Planning and Medication Reconciliation Discharge Data Lab Results 12/29/19 12/29/19 12/29/19 17:55 17:55 17:55 WBC RBC Hgb Hct MCV MCH MCHC RDW Std Deviation RDW Coeff of Tio Plt Count MPV Immature Gran % (Auto) Neut % (Auto) Lymph % (Auto) [place]cal[place] % (Auto) Eos % (Auto) Baso % (Auto) Neut # (Auto) Lymph # (Auto) [place]calfe # (Auto) Eos # (Auto) Baso # (Auto) Immature Gran # (Auto) Sodium Potassium Chloride Carbon Dioxide Anion Gap BUN Creatinine Est Cr Clr Drug Dosing Est GFR ( Amer) Est GFR (Non-Af Amer) BUN/Creatinine Ratio Glucose Calcium Total Bilirubin AST ALT Alkaline Phosphatase Total Protein Albumin Globulin Albumin/Globulin Ratio TSH Specimen Hemolysis Urine Color Dark Yellow Urine Appearance Cloudy A Urine pH 5.0 Ur Specific [place] 1.024 Urine Protein Negative Urine Glucose (UA) Negative Urine Ketones Trace H Urine Blood Negative Urine Nitrite Negative Urine Bilirubin Negative Urine Urobilinogen Negative Ur Leukocyte Esterase Negative Urine WBC (Auto) 1-5 Urine RBC (Auto) 0-4 U Hyaline Cast (Auto) 1-5 U Epithel Cells (Auto) 0-5 Urine Bacteria (Auto) Negative Urine Crystals Not Reportable Calcium Oxalate Crystal Present A Salicylates Urine Opiates Screen Neg Ur Methadone, Qual Neg Acetaminophen Urine Barbiturates Neg Ur Phencyclidine (PCP) Neg U Amphetamines Confirm 4960 H U Amphetamin/Meth Scrn Pos H U Methamphetamin Confrm NEGATIVE Urine MDEA negative MDMA (Ecstasy) Screen Pos H MDMA negative Urine MDMA negative U Benzodiazepines Scrn Neg Ur Cocaine Metabolite Neg U Marijuana (THC) Screen Neg Drug Screen Comment SEE NOTE Ethyl Alcohol mg/dL 12/29/19 12/29/19 12/29/19 17:58 17:58 17:58 WBC 5.99 RBC 4.38 L Hgb 14.7 Hct 42.3 MCV 96.6 MCH 33.6 MCHC 34.8 RDW Std Deviation 50.4 H RDW Coeff of Tio 14.3 Plt Count 146 MPV 10.6 H Immature Gran % (Auto) 0.2 Neut % (Auto) 64.5 Lymph % (Auto) 25.0 [place] % (Auto) 8.8 Eos % (Auto) 0.8 Baso % (Auto) 0.7 Neut # (Auto) 3.86 Lymph # (Auto) 1.50 [place]calfe # (Auto) 0.53 Eos # (Auto) 0.05 Baso # (Auto) 0.04 Immature Gran # (Auto) 0.01 Sodium 141 Potassium 4.4 Chloride 108 H Carbon Dioxide 28 Anion Gap 5.0 BUN 21 H Creatinine 1.24 Est Cr Clr Drug Dosing 79.1 Est GFR ( Amer) 78.6 Est GFR (Non-Af Amer) 67.8 BUN/Creatinine Ratio 16.9 Glucose 86 Calcium 8.9 Total Bilirubin 0.5 AST 18 ALT 25 Alkaline Phosphatase 119 H Total Protein 8.0 Albumin 4.0 Globulin 4.0 Albumin/Globulin Ratio 1.0 TSH 3.050 Specimen Hemolysis Urine Color Urine Appearance Urine pH Ur Specific [place] Urine Protein Urine Glucose (UA) Urine Ketones Urine Blood Urine Nitrite Urine Bilirubin Urine Urobilinogen Ur Leukocyte Esterase Urine WBC (Auto) Urine RBC (Auto) U Hyaline Cast (Auto) U Epithel Cells (Auto) Urine Bacteria (Auto) Urine Crystals Calcium Oxalate Crystal Salicylates < 1.7 L Urine Opiates Screen Ur Methadone, Qual Acetaminophen < 2 L Urine Barbiturates Ur Phencyclidine (PCP) U Amphetamines Confirm U Amphetamin/Meth Scrn U Methamphetamin Confrm Urine MDEA MDMA (Ecstasy) Screen MDMA Urine MDMA U Benzodiazepines Scrn Ur Cocaine Metabolite U Marijuana (THC) Screen Drug Screen Comment Ethyl Alcohol mg/dL 12/29/19 17:58 WBC RBC Hgb Hct MCV MCH MCHC RDW Std Deviation RDW Coeff of Tio Plt Count MPV Immature Gran % (Auto) Neut % (Auto) Lymph % (Auto) [place] % (Auto) Eos % (Auto) Baso % (Auto) Neut # (Auto) Lymph # (Auto) [place] # (Auto) Eos # (Auto) Baso # (Auto) Immature Gran # (Auto) Sodium Potassium Chloride Carbon Dioxide Anion Gap BUN Creatinine Est Cr Clr Drug Dosing Est GFR ( Amer) Est GFR (Non-Af Amer) BUN/Creatinine Ratio Glucose Calcium Total Bilirubin AST ALT Alkaline Phosphatase Total Protein Albumin Globulin Albumin/Globulin Ratio TSH Specimen Hemolysis Urine Color Urine Appearance Urine pH Ur Specific [place] Urine Protein Urine Glucose (UA) Urine Ketones Urine Blood Urine Nitrite Urine Bilirubin Urine Urobilinogen Ur Leukocyte Esterase Urine WBC (Auto) Urine RBC (Auto) U Hyaline Cast (Auto) U Epithel Cells (Auto) Urine Bacteria (Auto) Urine Crystals Calcium Oxalate Crystal Salicylates Urine Opiates Screen Ur Methadone, Qual Acetaminophen Urine Barbiturates Ur Phencyclidine (PCP) U Amphetamines Confirm U Amphetamin/Meth Scrn U Methamphetamin Confrm Urine MDEA MDMA (Ecstasy) Screen MDMA Urine MDMA U Benzodiazepines Scrn Ur Cocaine Metabolite U Marijuana (THC) Screen Drug Screen Comment Ethyl Alcohol mg/dL < 3.0 Hospital Course (1) Threatening suicide: 12/30/19 -The patient has been admitted to the [facility] behavioral health unit and has been placed on close observation with suicide precautions. He is wood for safety on the unit. -The patient has been confronted about the fact that his threats of suicide were made indirectly and by inference, at least within the context of his contact with his employers personnel office. The patient asserts that while his threats may have been indirect or inferred, he is, in fact, actively suicidal and remained so as of today. When asked, he declines to disclose his intended method and just said "there are lots of ways." 12/30 reviewed 01/02 - Pt is denying SI today 01/03 -continues to deny SI. Able to review discharge safety plan. Referred for outpatient DBT. (2) Major depression: 12/30/19 -Patient has a known history of recurrent major depressive episodes. These episodes do seem to occur independent of situational precipitants. However, the clinical picture is complicated by the fact that the patient, at baseline, has a great deal of difficulty regulating his mood and his behavior. For example, there is an extensive history of similar angry, dramatic, poorly controlled episodes, often involving his . -He has reported that his mood has improved response to the antidepressant medication duloxetine 60 mg a day, with bupropion XL 300 mg daily as an adjunct. However, he continues to have difficulty regulating his mood and tells us that even before the "run in" with his boss his mood was becoming progressively more depressed in the past several weeks. (An additional complicating factor is that during this period the patient had decided to stop taking Suboxone and was experiencing opioid withdrawal.) -I recommend that the patient start a mood stabilizer, namely lamotrigine, given his clear difficulty regulating his mood when under stress. Material risks of lamotrigine, including but not limited to Goldman-Chun syndrome were reviewed with the patient. He agreed that he would monitor for signs of a rash and would ask his or nursing staff to help him check. He was advised to notify us immediately if he develops a rash, particularly a rash that begins to spread. 12/30 reviewed 01/02 - Continue current medication regimen - Pt has already had phone meeting with , is scheduled with outpatient providers, and completed phone intake to work toward DBT groups through the [facility] - Pt agreeable with discharge tomorrow 01/03 -prescriptions issued for 30-day supply of lamotrigine and guanfacine ER. (3) ADHD: 12/30/19 -The patient comes to us with a diagnosis of ADHD and does describe a longstanding history of difficulty concentrating, focusing, staying on task, avoiding unnecessary distractions, listening when being directly addressed, and forgetfulness. He had consistently reported favorable response to Adderall on an outpatient basis but, of note is the fact that he had been regularly asking for increases in his dose of Adderall after initially asserting satisfaction with his response that each dose level. Staff note that they have been advised that there is a suspicion that the patient is using more Adderall than has been prescribed, but the patient denies that this is true, and he has not requested refills of Adderall prematurely. Nevertheless, given his intermittent explosive behaviors, his difficulty regulating his mood, and his extensive mood irritability we have elected not to continue Adderall in the hospital, and the plan will be for him not to continue Adderall or other stimulant on an outpatient basis. 12/30 reviewed. Risks/benefits/alternatives reviewed re: ADHD med options, discussion included but was not limited to FDA warnings re: SI with Strattera (hx of past trial with PCP), risk of misuse/diversion with stimulant, and cardiovascular safety profile with alpha agonists. Patient agrees to a trial of guanfacine 0.5 mg BID starting this afternoon and then titration and transition to guanfacine ER upon discharge. 12/31--d/c regular release guanfacine, guanfacine ER 2 mg starting in am. 01/01 tolerating guanfacine but early in the day, he will be titrating Strattera o n an outpatient basis. Now reports having clonidine 0.2 mg tabs at home for prn use for sleep that hasn't been given here. Reviewed should not take clonidine and guanfacine together. Guanfacine ER should be titrated to 3 mg after tomorrow with goal of 4 mg as tolerated. 01/02 - Titrating guanfacine ER to 3mg daily based on plan discussed above (4) Personality disorder: 12/30/19 -The patient uses a number of fairly primitive defense mechanisms including denial, projection and labral externalization. Also, his periods of emotional dysregulation seem most likely to occur in situations in which he has received a narcissistic injury, or is sensing that people are not living up to his expectations, or that he is not being given appropriate credit for his hard work. The patient is being actively encouraged to look at the extent to which he attributes his disagreeable life circumstances to, essentially, what he perceives as the hostility or incompetence of other people. He has been advised that while certainly other people can be hostile and incompetent, he is unlikely to change their behavior, and the only behavior that he can actually changes his own. For example, I attempted to role-play with the patient a response that he could have given his pharmaceutical compounding supervisor when his pharmaceutical compounding supervisor sent the patient with the patient considered to be a condescending and insulting emailparticularly given the fact that the bosses inference was unfounded and the specific instance. The patient's instinct was to either ignore the bosses insult or send the boss they noticed that he, the patient, does not intend to tolerate condescension and hostility. I suggested that a different response might be to thank the pharmaceutical compounding supervisor for his response and explained that he, the patient, had checked with specific persons in the department to make sure that his absence would not affect productivity on the specific projects in question and, in fact, he would have been happy to defer the requested time off had the feedback been otherwise. The patient is encouraged to work on these issues in individual 12/31--expressed interest in DBT. 01/02 - Pt completed phone intake with [facility] - will be scheduled with intake appointments. Individual therapy will be required before patient can be placed in a DBT group. Pt continues to be motivated to follow through with this option. Mental Health & Subst Abuse Tx Psychiatrist Name of Psychiatrist: Kourtney Jsoue - Dr. Concepcion Psychiatrist's Date of Appointment with Psychiatrist: 01/05/20 Time of Appointment with Psychiatrist: 10:20 a.m. Psychiatric Appointment Comment: [phone], [facility] [employer], [place] Therapist Name of Therapist: COCCjohan Josue - Dr. Marvin Garcia Therapist's Date of Therapist Appointment: 01/11/20 Time of Therapist Appointment: 1:00 p.m. Therapy Appointment Comment: [phone], [facility] [employer], [place] Guzzler Builder Name of Guzzler Builder: . Post Discharge Appointments Primary Care Physician Name Of Family Doctor: Arsh Doe Primary Care Date of Appointment with PCP: 01/09/20 Time of Appointment with PCP: 11:20 a.m. Provider Appointment Comment: [address] [facility] [place] Specialist Name of Specialist: Arsh [place] - Hematology and Oncology - Dr. Gaxiola Phone Number for Specialist: [phone] Time of Appointment with Specialist: Follow up according to your schedule Specialty Appointment Comment: [address] [place], [place] Smoking Cessation Counseling Tobacco Cessation Medication Prescribed at Discharge: Not Applicable/Non-Smoker Contact Information Discharge Discharge Address: [facility] [place] [address] Discharge Plan Discharge Items Patient Disposition: Home - Self-Care Reason For Visit: MDD Discharge Diagnosis: Depression Condition on Discharge: Good Activity: Per Instructions section Non-emergency contact: Primary Care Provider, Psychiatrist and Therapist Call non-emergency contact if: you have any medication questions and your symptoms worsen Follow-up/Referrals: Robin Doe, [Primary Care Provider] - Diet: Regular Addtl Attending Provider Instructions: SPECIAL CARE INSTRUCTIONS: 1. Follow through with your scheduled aftercare appointments. If unable to keep an appointment, please call to reschedule. 2. Take your medication only as prescribed. Medication should not be changed or stopped without the approval of your doctor. In the event of worsening symptoms or concerns about side effects, contact your doctor immediately. 3. Utilize new healthy coping skills, anger management skills, and stress management skills learned during your hospitalization. Journal feelings and process them with a support person. Identify stressors or situations that may result in relapse, deterioration or inappropriate behaviors and develop a plan to deal with those issues. 4. If your coping skills are ineffective and you are in crisis, contact your outpatient providers for direction. If unable to reach your providers, please call the CAN HELP LINE AT or go to the closest Emergency Room. 5. Avoid alcohol and un-prescribed drugs. 6. You have been provided with the Mental Health Advance Directives Pamphlet for your review. AFTERCARE APPOINTMENTS: * Please call your insurance company prior to your scheduled appointment to confirm your aftercare providers are covered. Take your insurance information to your appointments. WHO TO CALL AND WHEN: Medical Emergencies: For questions or emergencies related to your hospital stay, please contact the Inpatient Behavioral Health Unit at [phone]. A harvester operator is on-call 22/12 for the Behavioral Health Unit for emergencies At any time you feel your situation is an emergency, you may also call 911 immediately. Your Doctors Instructions noted above were prepared by provider Wendie Chau MD. Pending Studies at Discharge: No Stand-Alone Forms: My [facility], Smoking Cessation, Suicide Prevention Resources Medications and DC Order Prescriptions: New lamotrigine [Lamictal] 25 mg Tablet 25 mg PO QAM Qty: 45 RF: 0 guanfacine 1 mg Tablet Extended Release 24 Hr 3 mg PO DAILY Qty: 90 RF: 0 Continued duloxetine 60 mg capsule,delayed release(DR/EC) 60 mg PO DAILY RF: 0 bupropion HCl 300 mg tablet extended release 24 hr 300 mg PO DAILY RF: 0 octreotide acetate 500 mcg/mL (1 mL) Syringe 500 mcg subcut RF: 0 Discontinued dextroamphetamine-amphetamine 20 mg tablet 20 mg PO TID RF: 0 Discharge Orders: Discharge Order (Routine); Ordered 01/04/20 Ordered By: Wendie Chau Admission Data Admit Date/Time: 12/29/19 19:38 Attending Provider: Wendie Chau Admit Provider: Wendie Chau Primary Care Provider: Robin Doe Other Interventions: Discharge Summary Assessment (RN) Last Done: 01/04/20 09:38 PSY Interdisciplinary Discharge Planning Last Done: 01/04/20 09:46 Coding Level of Care Code 00139 D/C day mgmt > 30 min Diagnoses Threatening suicide R45.851 Major depression F32.9 ADHD F90.9 Personality disorder F60.9
[2020-01-04] MEDS: NICOTINE POLACRILEX 2 MG GUM MT PRN (10:20)
== END 2020-01-04 13:15 | disposition home or self-care (01) | DRG 885 ==
LOC: ED 15:59 → SUATTDRO 19:38 → 3S 19:38